=== PATIENT | male | born 1965 | race African-American/Black ===

== ENCOUNTER 2017-12-21 11:40 | Inpatient (IN) | payer OTHER ==
[2017-12-21 12:05] VITALS: BMI 31.9
--- NOTE | 2017-12-21 12:44 | HP ---
CIWA Score - CIWA Score Nausea/Vomitin Muscle Tremors: 3 Anxiety: 3 Agitation: 2 Paroxysmal Sweats: 1-Minimal Palms Moist Orientation: 0-Oriented Tacttile Disturbances: 1-Very Mild Itch/Numbness Auditory Disturbances: 1-Very Mild Visual Disturbances: 0-None Headache: 2-Mild CIWA-Ar Total Score: 16 Admission ROS BHS - HPI Chief Complaint: i need help to stop drinking alcohol and cocaine dependence,seeking detox,last treatment 2017 in [place] multiple admissions for detox but relapse nicotine dependence syncope alcohol related last 2 weeks ago history of a fall longest period of sobriety 2 and half years need help to stop drinking i Allergies/Adverse Reactions: Allergies Allergy/AdvReac Type Severity Reaction Status Date / Time No Known Allergies Allergy Verified 12/21/17 12:40 History of Present Illness: this 52 years old male with alcohol,cocaine dependence for detox as mentioned above Exam Limitations: No Limitations - Ebola screening Have you traveled outside of the country in the last 21 days: No Have you been sick,other than usual withdrawal symptoms: No - Review of Systems Constitutional: Chills, Loss of Appetite, Malaise, Night Sweats, Changes in sleep, Weakness EENT: reports: Nose Congestion Respiratory: reports: No Symptoms reported Cardiac: reports: No Symptoms Reported GI: reports: Nausea, Vomiting, Abdominal cramping : reports: No Symptoms Reported Musculoskeletal: reports: Muscle Pain Integumentary: reports: Dryness Neuro: reports: Headache, Tremors Endocrine: reports: No Symptoms Reported Hematology: reports: No Symptoms Reported Psychiatric: reports: No Sypmtoms Reported, Judgement Intact, Mood/Affect Appropiate, Orientated x3 Patient History - Patient Medical History Hx Anemia: No Hx Asthma: No Hx Chronic Obstructive Pulmonary Disease (COPD): No Hx Cancer: No Hx Cardiac Disorders: No Hx Congestive Heart Failure: No Hx Hypertension: Yes (Hx of HTN- On no medication) Hx Hypercholesterolemia: No Hx Pacemaker: No HX Cerebrovascular Accident: No Hx Seizures: No Hx Dementia: No Hx Diabetes: No Hx Gastrointestinal Disorders: No Hx Liver Disease: No Hx Genitourinary Disorders: No Hx Sexually Transmitted Disorders: No Hx Renal Disease (ESRD): No Hx Thyroid Disease: No Hx Human Immunodeficiency Virus (HIV): No (LAST 06/08 negtive) Hx Hepatitis C: No Hx Depression: No Hx Suicide Attempt: No Hx Bipolar Disorder: No Hx Schizophrenia: No Other Medical History: no suicidal,no homicidal - Patient Surgical History Past Surgical History: No Hx Neurologic Surgery: No Hx Cataract Extraction: No Hx Cardiac Surgery: No Hx Lung Surgery: No Hx Breast Surgery: No Hx Breast Biopsy: No Hx Abdominal Surgery: No Hx Appendectomy: No Hx Cholecystectomy: No Hx Genitourinary Surgery: No Hx Section: No Hx Orthopedic Surgery: No Anesthesia Reaction: No - PPD History Previous Implant?: Yes Implanted On Prior [facility] Admission?: Yes Date: 07/29/14 Results: negative PPD to be Administered?: Yes - Smoking Cessation Smoking history: Current every day smoker Have you smoked in the past 12 months: Yes Aproximately how many cigarettes per day: 5 Cigars Per Day: 0 Hx Chewing Tobacco Use: No Initiated information on smoking cessation: Yes 'Breaking Loose' booklet given: 12/21/17 - Substance & Tx. History Hx Alcohol Use: Yes Hx Substance Use: Yes Substance Use Type: Alcohol, Cocaine Hx Substance Use Treatment: Yes (2017 in [facility]) - Substances Abused Alcohol Route: Oral Frequency: Daily Amount used: 1 LITER OF VODKA, 2- 40 OUNCES OF BEER Age of first use: 15 Date of Last Use: 12/21/17 Cocaine Route: Inhalation Frequency: Daily Amount used: 1 -1/2 GRAMS Age of first use: 17 Date of Last Use: 12/20/17 Family Disease History - Family Disease History Family Disease History: Other: Brother (ETOH DEPENDENT), Sister (ETOH DEPENDENT) Admission Physical Exam S - Vital Signs Vital Signs: Vital Signs - 24 hr 12/21/17 12:02 Temperature 97.6 F Pulse Rate 82 Respiratory 19 Rate Blood Pressure 140/90 - Physical General Appearance: Yes: Moderate Distress, Tremorous, Irritable, Sweating, Anxious HEENTM: Yes: Normal ENT Inspection, JENARO, Pharynx Normal Respiratory: Yes: Lungs Clear, Normal Breath Sounds, No Respiratory Distress Neck: Yes: Within Normal Limits, Supple, Trachea in good position Breast: Yes: Within Normal Limits, Other Cardiology: Yes: Within Normal Limits, Regular Rate, S1, S2 Abdominal: Yes: Within Normal Limits, Normal Bowel Sounds, Non Tender, Soft Genitourinary: Yes: Within Normal Limits Musculoskeletal: Yes: Back pain, Muscle Pain Extremities: Yes: Within Normal Limits, Normal Range of Motion, Tremors Neurological: Yes: track walker II-XII NML intact, Alert, Motor Strength 5/5 Integumentary: Yes: Dry Lymphatic: Yes: Within Normal Limits - Diagnostic (1) Alcohol dependence with uncomplicated withdrawal Current Visit: Yes Status: Acute (2) Cocaine dependence Current Visit: No Status: Acute (3) Syncope Current Visit: No Status: Acute (4) Weight loss Current Visit: No Status: Acute (5) HTN (hypertension) Current Visit: No Status: Chronic (6) Nicotine dependence Current Visit: No Status: Chronic Cleared for Admission [facility] - Detox or Rehab [facility] Level of Care: Medically Managed Detox Regimen/Protocol: Librium [facility] Breath Alcohol Content Breath Alcohol Content: 0 Urine Drug Screen - Results Drug Screen Negative: No Urine Drug Screen Results: ERICK-Cocaine, BZO-Benzodiazepines
[2017-12-21] MEDS ORDERED: chlordiazePOXIDE HCL 25 MG CAPSULE PO PRN (12:54)
[2017-12-21] MEDS ORDERED: IBUPROFEN 400 MG TABLET (FP) PO PRN (12:54)
[2017-12-21] MEDS ORDERED: ACETAMINOPHEN 325 MG TABLET (FP) PO PRN (12:54)
[2017-12-21] MEDS ORDERED: hydrOXYzine PAMOATE 25 MG CAPSULE (FP) PO PRN (12:54)
[2017-12-21] MEDS ORDERED: P-EPHED 60MG/TRIPROLIDI 2.5MG TABLET PO PRN (12:54)
[2017-12-21] MEDS ORDERED: MAG HYDROX/AL HYDROX/SIMETH 30 ML UNIT-DOSE CUP PO PRN (12:54)
[2017-12-21] MEDS ORDERED: LOPERAMIDE HCL 2 MG CAPSULE PO PRN (12:54)
[2017-12-21] MEDS ORDERED: MENTHOL/PHENOL 1 EACH UD MM PRN (12:54)
[2017-12-21] MEDS ORDERED: MAGNESIUM HYDROX 2400MG/30ML ORAL SUSPENSION 30 ML CUP PO PRN (12:54)
[2017-12-21] MEDS ORDERED: guaiFENesin/D-METHORPHAN HB 10 ML UNIT-DOSE CUPS PO PRN (12:54)
[2017-12-21] MEDS ORDERED: MAGNESIUM CITRATE 300 ML BOTTLE PO PRN (12:54)
[2017-12-21] MEDS: chlordiazePOXIDE HCL 25 MG CAPSULE PO SCH ×2 (16:57→22:43)
[2017-12-21 17:39] LABS: URINE APPEARANCE TURBID; URINE BILIRUBIN NEGATIVE (<2.0 mg/dL); URINE COLOR AMBER; URINE GLUCOSE (UA) NEGATIVE (NEGATIVE); URINE KETONE NEGATIVE (NEGATIVE); URINE LEUK ESTERASE NEGATIVE (NEGATIVE); URINE NITRITE NEGATIVE (NEGATIVE); URINE PROTEIN NEGATIVE (NEGATIVE); URINE UROBILINOGEN NEGATIVE mg/dL (0.2-1.0)
[2017-12-21] MEDS: THIAMINE HCL 100 MG TABLET (FP) PO SCH (22:42)
[2017-12-22] MEDS: chlordiazePOXIDE HCL 25 MG CAPSULE PO SCH ×4 (05:30→22:01)
--- NOTE | 2017-12-22 06:09 | EKG ---
Test Reason : Blood Pressure : / mmHG Vent. Rate : 069 BPM Atrial Rate : 069 BPM P-R Int : 132 ms QRS Dur : 084 ms QT Int : 396 ms P-R-T Axes : 059 026 -05 degrees QTc Int : 424 ms NORMAL SINUS RHYTHM NORMAL ECG NO PREVIOUS ECGS AVAILABLE Confirmed by TOOTIE BEJARANO MD ([id number]) on 12/22/2017 6:09:07 AM Referred By: SYDNIE CHERRY Confirmed By:TOOTIE BEJARANO MD
[2017-12-22] MEDS: PRENATAL VITAMINS W/ FOLIC ACID TABLET (FP) PO SCH (10:07)
[2017-12-22 10:21] LABS: HEMATOCRIT 41.8 % (35.4-49); HEMOGLOBIN 13.5 GM/dL (11.7-16.9); MCH 30.3 pg (25.7-33.7); MCHC 32.4 g/dl (32.0-35.9); MEAN CELL VOLUME 93.8 fl (80-96); MEAN PLT VOLUME 8.6 fl (7.5-11.1); PLATELET COUNT 187 K/MM3 (134-434); RBC 4.46 M/mm3 (4.00-5.60); WHITE BLOOD COUNT 6.2 K/mm3 (4.0-10.0)
[2017-12-22 10:40] LABS: ALBUMIN 3.2 g/dl (3.4-5.0); ALK PHOS 67 U/L (45-117); ANION GAP 7 MMOL/L (8-16); BILIRUBIN,TOTAL 0.3 mg/dL (0.2-1); BLOOD UREA NITROGEN 13 mg/dL (7-18); CALCIUM 8.8 mg/dL (8.5-10.1); CHLORIDE 103 mmol/L (98-107); CO2 27 mmol/L (21-32); GLUCOSE,RANDOM 121 mg/dL (74-106); POTASSIUM 3.9 mmol/L (3.5-5.1); SGOT/AST 23 U/L (15-37); SGPT/ALT 40 U/L (13-61); SODIUM 137 mmol/L (136-145); TOT PROT 6.8 g/dl (6.4-8.2)
--- NOTE | 2017-12-22 11:10 | PN ---
S CIWA - CIWA Score Nausea/Vomitin Muscle Tremors: 4-Moderate,w/Arms Extend Anxiety: 4-Mod. Anxious/Guarded Agitation: 4-Moderately Restless Paroxysmal Sweats: 3 Orientation: 0-Oriented Tacttile Disturbances: 0-None Auditory Disturbances: 0-None Visual Disturbances: 0-None Headache: 1-Very Mild CIWA-Ar Total Score: 19 BHS Progress Note (SOAP) Subjective: Interrupted sleep, sweating Objective: 12/22/17 10:56 Last Vital Signs Temp Pulse Resp BP Pulse Ox 97.3 F L 74 18 110/72 12/22/17 09:35 12/22/17 09:35 12/22/17 09:35 12/22/17 09:35 Laboratory Tests 12/21/17 12/22/17 12/22/17 13:25 07:00 07:00 WBC 6.2 RBC 4.46 Hgb 13.5 Hct 41.8 MCV 93.8 MCH 30.3 MCHC 32.4 RDW 15.0 Plt Count 187 MPV 8.6 Sodium 137 Potassium 3.9 Chloride 103 Carbon Dioxide 27 Anion Gap 7 L BUN 13 Creatinine 1.0 Creat Clearance w eGFR > 60 Random Glucose 121 H Calcium 8.8 Total Bilirubin 0.3 AST 23 ALT 40 Alkaline Phosphatase 67 Total Protein 6.8 Albumin 3.2 L Urine Color [place] Urine Appearance Turbid Urine pH 5.0 Ur Specific [place] 1.027 Urine Protein Negative Urine Glucose (UA) Negative Urine Ketones Negative Urine Blood Negative Urine Nitrite Negative Urine Bilirubin Negative Urine Urobilinogen Negative Ur Leukocyte Esterase Negative Labs reviewed Assessment: 12/22/17 11:00 Withdrawal sx Plan: Continue detox Encouraged PO water intake
[2017-12-22] MEDS: THIAMINE HCL 100 MG TABLET (FP) PO SCH (22:01)
[2017-12-22] MEDS: MELATONIN 5 MG TABLETS PO PRN (23:23)
[2017-12-23] MEDS: chlordiazePOXIDE HCL 25 MG CAPSULE PO SCH ×2 (05:21→12:34)
--- NOTE | 2017-12-23 11:23 | PN ---
S CIWA - CIWA Score Nausea/Vomitin Muscle Tremors: 3 Anxiety: 4-Mod. Anxious/Guarded Agitation: 4-Moderately Restless Paroxysmal Sweats: 3 Orientation: 0-Oriented Tacttile Disturbances: 0-None Auditory Disturbances: 0-None Visual Disturbances: 0-None Headache: 0-None Present CIWA-Ar Total Score: 16 BHS Progress Note (SOAP) Subjective: Anxious, headache, agitation, interrupted sleep Objective: 12/23/17 11:22 Last Vital Signs Temp Pulse Resp BP Pulse Ox 97 F L 80 18 136/86 12/23/17 09:21 12/23/17 09:21 12/23/17 09:21 12/23/17 09:21 Laboratory Tests 12/21/17 12/22/17 12/22/17 13:25 07:00 07:00 WBC 6.2 RBC 4.46 Hgb 13.5 Hct 41.8 MCV 93.8 MCH 30.3 MCHC 32.4 RDW 15.0 Plt Count 187 MPV 8.6 Sodium Potassium Chloride Carbon Dioxide Anion Gap BUN Creatinine Creat Clearance w eGFR Random Glucose Calcium Total Bilirubin AST ALT Alkaline Phosphatase Total Protein Albumin Urine Color Heather Urine Appearance Turbid Urine pH 5.0 Ur Specific [place] 1.027 Urine Protein Negative Urine Glucose (UA) Negative Urine Ketones Negative Urine Blood Negative Urine Nitrite Negative Urine Bilirubin Negative Urine Urobilinogen Negative Ur Leukocyte Esterase Negative RPR Titer HIV 1&2 Antibody Screen Negative HIV P24 Antigen Negative 12/22/17 12/22/17 07:00 07:00 WBC RBC Hgb Hct MCV MCH MCHC RDW Plt Count MPV Sodium 137 Potassium 3.9 Chloride 103 Carbon Dioxide 27 Anion Gap 7 L BUN 13 Creatinine 1.0 Creat Clearance w eGFR > 60 Random Glucose 121 H Calcium 8.8 Total Bilirubin 0.3 AST 23 ALT 40 Alkaline Phosphatase 67 Total Protein 6.8 Albumin 3.2 L Urine Color Urine Appearance Urine pH Ur Specific [place] Urine Protein Urine Glucose (UA) Urine Ketones Urine Blood Urine Nitrite Urine Bilirubin Urine Urobilinogen Ur Leukocyte Esterase RPR Titer Nonreactive HIV 1&2 Antibody Screen HIV P24 Antigen Labs reviewed Assessment: 12/23/17 11:22 Withdrawal sx Plan: Continue detox
[2017-12-23] MEDS: PRENATAL VITAMINS W/ FOLIC ACID TABLET (FP) PO SCH (12:33)
[2017-12-23] MEDS: chlordiazePOXIDE 5 MG CAPSULE PO SCH ×2 (18:09→22:14)
[2017-12-23] MEDS: THIAMINE HCL 100 MG TABLET (FP) PO SCH (22:14)
[2017-12-23] MEDS: MELATONIN 5 MG TABLETS PO PRN (22:15)
[2017-12-24] MEDS: chlordiazePOXIDE 5 MG CAPSULE PO SCH ×2 (06:29→10:05)
[2017-12-24 09:02] VITALS: BP 124/89; PULSE 82; TEMP 96.7
[2017-12-24] MEDS: PRENATAL VITAMINS W/ FOLIC ACID TABLET (FP) PO SCH (10:04)
--- NOTE | 2017-12-24 10:29 | PN ---
BHS Progress Note (SOAP) Subjective: Angry, agitated, anxious, interrupted sleep. Patient with multiple complaints stating he has been demanding a lot of services and not getting any result such as requesting clothing. Objective: 12/24/17 10:26 Last Vital Signs Temp Pulse Resp BP Pulse Ox 96.7 F L 82 16 124/89 12/24/17 09:02 12/24/17 09:02 12/24/17 09:02 12/24/17 09:02 Laboratory Tests 12/21/17 12/22/17 12/22/17 13:25 07:00 07:00 WBC 6.2 RBC 4.46 Hgb 13.5 Hct 41.8 MCV 93.8 MCH 30.3 MCHC 32.4 RDW 15.0 Plt Count 187 MPV 8.6 Sodium Potassium Chloride Carbon Dioxide Anion Gap BUN Creatinine Creat Clearance w eGFR Random Glucose Calcium Total Bilirubin AST ALT Alkaline Phosphatase Total Protein Albumin Urine Color Heather Urine Appearance Turbid Urine pH 5.0 Ur Specific [place] 1.027 Urine Protein Negative Urine Glucose (UA) Negative Urine Ketones Negative Urine Blood Negative Urine Nitrite Negative Urine Bilirubin Negative Urine Urobilinogen Negative Ur Leukocyte Esterase Negative RPR Titer HIV 1&2 Antibody Screen Negative HIV P24 Antigen Negative 12/22/17 12/22/17 07:00 07:00 WBC RBC Hgb Hct MCV MCH MCHC RDW Plt Count MPV Sodium 137 Potassium 3.9 Chloride 103 Carbon Dioxide 27 Anion Gap 7 L BUN 13 Creatinine 1.0 Creat Clearance w eGFR > 60 Random Glucose 121 H Calcium 8.8 Total Bilirubin 0.3 AST 23 ALT 40 Alkaline Phosphatase 67 Total Protein 6.8 Albumin 3.2 L Urine Color Urine Appearance Urine pH Ur Specific [place] Urine Protein Urine Glucose (UA) Urine Ketones Urine Blood Urine Nitrite Urine Bilirubin Urine Urobilinogen Ur Leukocyte Esterase RPR Titer Nonreactive HIV 1&2 Antibody Screen HIV P24 Antigen Labs reviewed Assessment: 12/24/17 10:27 Withdrawal sxs Plan: Continue detox Encouraged PO water intake
--- NOTE | 2017-12-24 16:54 | PN ---
[facility] Progress Note Note: Notified by RN patient requested to leave right now. Patient agitated and refused to wait to speak to provider. Patient stated to staff " No one can make me stay here. I want to leave now! Give me my papers." No statements of SI/HI reported by patient. Patient encouraged to complete detox but refused. Patient encouraged to follow up with group meetings to prevent relapse.
--- NOTE | 2017-12-24 16:54 | DS ---
[facility] Detox Discharge Summary Admission Date: 12/21/17 Discharge Date: 12/24/17 - History Present History: Alcohol Dependence - Physical Exam Results Vital Signs: Vital Signs Temperature 96.7 F L 12/24/17 09:02 Pulse Rate 82 12/24/17 09:02 Respiratory Rate 16 12/24/17 09:02 Blood Pressure 124/89 12/24/17 09:02 O2 Sat by Pulse Oximetry (%) - Medication Discharge Medications: Ambulatory Orders NK [No Known Home Medication] 12/21/17 - AMA Did Patient Leave Against Medical Advice: Yes
[2017-12-24] MEDS ORDERED: chlordiazePOXIDE HCL 10 MG CAPSULE PO SCH (17:00)
== END 2017-12-24 16:45 | disposition left against medical advice (07) | DRG 770 ==
LOC: YASAS 11:40 → Y3N 12:50
PROC: HZ2ZZZZ Detoxification Services for Substance Abuse Treatment (ICD-10-PCS; principal; 2017-12-21)
DX: F10.230 Alcohol dependence with withdrawal, uncomplicated (principal); F14.20 Cocaine dependence, uncomplicated; F17.210 Nicotine dependence, cigarettes, uncomplicated; I10 Essential (primary) hypertension; Z87.898 Personal history of other specified conditions; Z59.0 Homelessness
CPT/HCPCS: 36415; 80053; 81003; 85027; 86593; 87389; 93005; 93010

== ENCOUNTER 2018-04-12 08:24 | Inpatient (IN) | payer OTHER ==
[2018-04-12 09:26] VITALS: BMI 34.6
--- NOTE | 2018-04-12 09:32 | HP ---
CIWA Score Nausea/Vomitin Muscle Tremors: 2 Anxiety: 2 Agitation: 2 Paroxysmal Sweats: 3 Orientation: 0-Oriented Tacttile Disturbances: 0-None Auditory Disturbances: 0-None Visual Disturbances: 0-None Headache: 3-Moderate CIWA-Ar Total Score: 14 - Admission Criteria [facility] Guidelines: Admission for Medically Managed Detox: Requires at least one of the followin. CIWA greater than 12 2. Seizures within the past 24 hours 3. Delirium tremens within the past 24 hours 4. Hallucinations within the past 24 hours 5. Acute intervention needed for co occurring medical disorder 6. Acute intervention needed for co occurring psychiatric disorder 7. Severe withdrawal that cannot be handled at a lower level of care (continued vomiting, continued diarrhea, abnormal vital signs) requiring intravenous medication and/or fluids 8. Patient presents the following: CIWA greater than 12 Admission Criteria Met: Admission criteria met Admission ROS [facility] Chief Complaint: HERE FOR alcohol and cocaine detox, says he went to [facility] but did not get treatment as the van to come here picked him up within 10 mins 52 yo with no med problems takes no meds, last here 3 months ago for the same. Says he was without using for about 6 weeks and then relapse. Says does not attend AA or group meetings regularly. Alcohol- 3-4 pints/day of flacca, no seizures or DT's, last drink 6 hours ago Cocaine- 1 or less per day depending on money- sniff DUR- morphine sulfate in Feb 28 2018, none in Mar Utox- cocaine, benzo (does not know how this is pos- denies all benzo) Allergies/Adverse Reactions: Allergies Allergy/AdvReac Type Severity Reaction Status Date / Time No Known Allergies Allergy Verified 04/12/18 09:03 - Ebola screening Have you been sick,other than usual withdrawal symptoms: No Patient History - Patient Medical History Hx Anemia: No Hx Asthma: No Hx Chronic Obstructive Pulmonary Disease (COPD): No Hx Cancer: No Hx Cardiac Disorders: No Hx Congestive Heart Failure: No Hx Hypertension: Yes (Hx of HTN- On no medication) Hx Hypercholesterolemia: No Hx Pacemaker: No HX Cerebrovascular Accident: No Hx Seizures: No Hx Dementia: No Hx Diabetes: No Hx Gastrointestinal Disorders: No Hx Liver Disease: No Hx Genitourinary Disorders: No Hx Sexually Transmitted Disorders: No Hx Renal Disease (ESRD): No Hx Thyroid Disease: No Hx Human Immunodeficiency Virus (HIV): No (LAST 06/08 negtive) Hx Hepatitis C: No Hx Depression: No Hx Suicide Attempt: No Hx Bipolar Disorder: No Hx Schizophrenia: No - Patient Surgical History Past Surgical History: Yes Hx Neurologic Surgery: No Hx Cataract Extraction: No Hx Cardiac Surgery: No Hx Lung Surgery: No Hx Breast Surgery: No Hx Breast Biopsy: No Hx Abdominal Surgery: No Hx Appendectomy: No Hx Cholecystectomy: No Hx Genitourinary Surgery: No Hx Section: No Hx Orthopedic Surgery: Yes (RIGHT FOOT BUNION SURGERY 2014) Anesthesia Reaction: No - PPD History Previous Implant?: Yes Documented Results: Negative w/proof Implanted On Prior [facility] Admission?: Yes Date: 12/23/17 Results: NEGATIVE PPD to be Administered?: No - Smoking Cessation Smoking history: Current every day smoker Have you smoked in the past 12 months: Yes Aproximately how many cigarettes per day: 10 Cigars Per Day: 0 Hx Chewing Tobacco Use: No Initiated information on smoking cessation: Yes 'Breaking Loose' booklet given: 04/12/18 - Substance & Tx. History Hx Alcohol Use: Yes Hx Substance Use: Yes Substance Use Type: Alcohol, Cocaine Hx Substance Use Treatment: Yes (several times) - Substances Abused Alcohol Route: Oral Frequency: Daily Amount used: 3 PINTS OF VODKA Age of first use: 15 Date of Last Use: 04/12/18 Cocaine Route: Inhalation Frequency: 3-6 times per week Amount used: 1 GRAM Age of first use: 17 Date of Last Use: 04/11/18 Family Disease History - Family Disease History Family Disease History: Other: Brother (ETOH DEPENDENT), Sister (ETOH DEPENDENT) Admission Physical Exam S - Vital Signs Vital Signs: Vital Signs - 24 hr 04/12/18 08:55 Temperature 96.8 F L Pulse Rate 111 H Respiratory 18 Rate Blood Pressure 113/70 - Physical HEENTM: Yes: Other (blood shot eyes) Respiratory: Yes: Within Normal Limits, Lungs Clear Neck: Yes: Within Normal Limits, Supple Cardiology: Yes: Within Normal Limits, Regular Rhythm, Regular Rate, S1, S2 Abdominal: Yes: Within Normal Limits, Protuberent Back: Yes: Within Normal Limits Musculoskeletal: Yes: Within Normal Limits Extremities: Yes: Within Normal Limits, Other (fungal onychomycosis) Neurological: Yes: Within Normal Limits, emergency telecommunications dispatcher II-XII NML intact, Fully Oriented, Motor Strength 5/5, Normal Mood/Affect Integumentary: Yes: Within Normal Limits, Normal Color, Dry Lymphatic: Yes: Within Normal Limits - Diagnostic (1) Alcohol dependence with uncomplicated withdrawal Current Visit: No Status: Acute (2) Cocaine dependence Current Visit: No Status: Chronic (3) Nicotine dependence Current Visit: No Status: Chronic BHS Breath Alcohol Content Breath Alcohol Content: 0.110 Urine Drug Screen - Results Drug Screen Negative: No Urine Drug Screen Results: ERICK-Cocaine, BZO-Benzodiazepines
[2018-04-12] MEDS ORDERED: hydrOXYzine PAMOATE 25 MG CAPSULE (FP) PO PRN (09:37)
[2018-04-12] MEDS ORDERED: P-EPHED 60MG/TRIPROLIDI 2.5MG TABLET PO PRN (09:37)
[2018-04-12] MEDS ORDERED: ACETAMINOPHEN 325 MG TABLET (FP) PO PRN (09:37)
[2018-04-12] MEDS ORDERED: MAG HYDROX/AL HYDROX/SIMETH 30 ML UNIT-DOSE CUP PO PRN (09:37)
[2018-04-12] MEDS ORDERED: MAGNESIUM CITRATE 300 ML BOTTLE PO PRN (09:37)
[2018-04-12] MEDS ORDERED: MAGNESIUM HYDROX 2400MG/30ML ORAL SUSPENSION 30 ML CUP PO PRN (09:37)
[2018-04-12] MEDS ORDERED: MENTHOL/PHENOL 1 EACH UD MM PRN (09:37)
[2018-04-12] MEDS ORDERED: LOPERAMIDE HCL 2 MG CAPSULE PO PRN (09:37)
[2018-04-12] MEDS ORDERED: chlordiazePOXIDE HCL 25 MG CAPSULE PO PRN (09:38)
[2018-04-12] MEDS ORDERED: cloNIDine HCL 0.1 MG TABLET PO PRN (09:39)
[2018-04-12] MEDS: chlordiazePOXIDE HCL 25 MG CAPSULE PO SCH ×3 (10:43→22:26)
[2018-04-12] MEDS: PRENATAL VITAMINS W/ FOLIC ACID TABLET (FP) PO SCH (10:43)
[2018-04-12] MEDS: IBUPROFEN 400 MG TABLET (FP) PO PRN (17:40)
[2018-04-12] MEDS: THIAMINE HCL 100 MG TABLET (FP) PO SCH (22:26)
[2018-04-12 23:01] LABS: URINE APPEARANCE TURBID; URINE BILIRUBIN NEGATIVE (<2.0 mg/dL); URINE COLOR YELLOW; URINE GLUCOSE (UA) NEGATIVE (NEGATIVE); URINE KETONE TRACE (NEGATIVE); URINE LEUK ESTERASE NEGATIVE (NEGATIVE); URINE NITRITE NEGATIVE (NEGATIVE); URINE PROTEIN 1+ (NEGATIVE); URINE UROBILINOGEN NEGATIVE mg/dL (0.2-1.0)
[2018-04-12 23:24] LABS: URINE BACTERIA FEW /hpf (NONE SEEN); URINE MUCUS RARE
[2018-04-13] MEDS: chlordiazePOXIDE HCL 25 MG CAPSULE PO SCH (06:55)
[2018-04-13] MEDS ORDERED: chlordiazePOXIDE 5 MG CAPSULE PO PRN (10:03)
[2018-04-13 10:04] LABS: HEMATOCRIT 36.9 % (35.4-49); HEMOGLOBIN 12.7 GM/dL (11.7-16.9); MCHC 34.4 g/dl (32.0-35.9); MEAN CELL VOLUME 90.2 fl (80-96); MEAN PLT VOLUME 8.6 fl (7.5-11.1); PLATELET COUNT 203 K/MM3 (134-434); RBC 4.09 M/mm3 (4.00-5.60); RDW 14.8 % (11.9-15.9); WHITE BLOOD COUNT 5.7 K/mm3 (4.0-10.0)
[2018-04-13 10:13] LABS: ALBUMIN 3.2 g/dl (3.4-5.0); ALK PHOS 95 U/L (45-117); ANION GAP 6 MMOL/L (8-16); BILIRUBIN,TOTAL 0.9 mg/dL (0.2-1); BLOOD UREA NITROGEN 18 mg/dL (7-18); CALCIUM 8.1 mg/dL (8.5-10.1); CHLORIDE 105 mmol/L (98-107); CO2 29 mmol/L (21-32); GLUCOSE,RANDOM 115 mg/dL (74-106); POTASSIUM 3.9 mmol/L (3.5-5.1); SGOT/AST 29 U/L (15-37); SGPT/ALT 44 U/L (13-61); SODIUM 140 mmol/L (136-145); TOT PROT 6.8 g/dl (6.4-8.2)
[2018-04-13] MEDS: chlordiazePOXIDE 5 MG CAPSULE PO SCH ×3 (10:19→22:09)
[2018-04-13] MEDS: PRENATAL VITAMINS W/ FOLIC ACID TABLET (FP) PO SCH (10:19)
[2018-04-13] MEDS ORDERED: chlordiazePOXIDE HCL 25 MG CAPSULE PO SCH (11:00)
--- NOTE | 2018-04-13 14:56 | PN ---
[facility] CIWA - CIWA Score Nausea/Vomitin-No Nausea/No Vomiting Muscle Tremors: None Anxiety: 0-No Anxiety, at Ease Agitation: 0-Normal Activity Paroxysmal Sweats: 3 Orientation: 0-Oriented Tacttile Disturbances: 2-Mild Itch/Numbness/Burn Auditory Disturbances: 1-Very Mild Visual Disturbances: 3-Moderate Sensitivity Headache: 3-Moderate CIWA-Ar Total Score: 12 BHS Progress Note (SOAP) Subjective: Sweating, Body Aches, H/A, Interrupted Sleep, Diarrhea. Patient Reports that he fell and injured his Lower Left Leg approx. 10 days ago. Patient Notes that he was seen at [facility], but that no X-Ray was done and that he did not receive treatment for Injury while there at that time. Patient does note that pain in Leg has gradually been improving with each day since injury occurred. Objective: PATIENT A & O X 3, OBSERVED AMBULATING ON UNIT. IN NO ACUTE DISTRESS. NO SWELLING OR ERYTHEMA NOTED IN LEFT LOWER LEG OR KNEE. 04/13/18 14:59 Vital Signs Temperature 97.5 F L 04/13/18 13:25 Pulse Rate 88 04/13/18 13:25 Respiratory Rate 18 04/13/18 13:25 Blood Pressure 135/75 04/13/18 13:25 O2 Sat by Pulse Oximetry (%) Laboratory Tests 04/12/18 04/13/18 04/13/18 13:47 07:55 07:55 WBC 5.7 RBC 4.09 Hgb 12.7 Hct 36.9 MCV 90.2 MCH 31.0 MCHC 34.4 RDW 14.8 Plt Count 203 MPV 8.6 Sodium 140 Potassium 3.9 Chloride 105 Carbon Dioxide 29 Anion Gap 6 L BUN 18 Creatinine 1.0 Creat Clearance w eGFR > 60 Random Glucose 115 H Calcium 8.1 L Total Bilirubin 0.9 AST 29 ALT 44 Alkaline Phosphatase 95 Total Protein 6.8 Albumin 3.2 L Urine Color Yellow Urine Appearance Turbid Urine pH 5.0 Ur Specific [place] 1.029 Urine Protein 1+ H Urine Glucose (UA) Negative Urine Ketones Trace H Urine Blood Negative Urine Nitrite Negative Urine Bilirubin Negative Urine Urobilinogen Negative Ur Leukocyte Esterase Negative Urine WBC (Auto) None Urine RBC (Auto) None Urine Bacteria Few Urine Mucus Rare RPR Titer 04/13/18 07:55 WBC RBC Hgb Hct MCV MCH MCHC RDW Plt Count MPV Sodium Potassium Chloride Carbon Dioxide Anion Gap BUN Creatinine Creat Clearance w eGFR Random Glucose Calcium Total Bilirubin AST ALT Alkaline Phosphatase Total Protein Albumin Urine Color Urine Appearance Urine pH Ur Specific [place] Urine Protein Urine Glucose (UA) Urine Ketones Urine Blood Urine Nitrite Urine Bilirubin Urine Urobilinogen Ur Leukocyte Esterase Urine WBC (Auto) Urine RBC (Auto) Urine Bacteria Urine Mucus RPR Titer Nonreactive LABS NOTED. Assessment: 04/13/18 15:00 WITHDRAWAL SYMPTOMS. Plan: CONTINUE DETOX. INCREASE DAILY PO FLUID INTAKE. X-RAY OF LEFT LOWER LEG ORDERED FOR TOMORROW AM.
[2018-04-13] MEDS: IBUPROFEN 400 MG TABLET (FP) PO PRN (17:56)
[2018-04-13] MEDS: THIAMINE HCL 100 MG TABLET (FP) PO SCH (22:09)
[2018-04-13] MEDS: MELATONIN 5 MG TABLETS PO PRN (22:09)
[2018-04-14] MEDS: chlordiazePOXIDE 5 MG CAPSULE PO SCH (06:40)
[2018-04-14] MEDS: PRENATAL VITAMINS W/ FOLIC ACID TABLET (FP) PO SCH (10:17)
[2018-04-14] MEDS: chlordiazePOXIDE HCL 10 MG CAPSULE PO SCH ×3 (10:17→22:01)
[2018-04-14] MEDS ORDERED: chlordiazePOXIDE 5 MG CAPSULE PO SCH (11:00)
[2018-04-14] MEDS: IBUPROFEN 400 MG TABLET (FP) PO PRN ×2 (12:39→21:46)
--- NOTE | 2018-04-14 14:46 | PN ---
[facility] CIWA - CIWA Score Nausea/Vomitin-No Nausea/No Vomiting Muscle Tremors: None Anxiety: 3 Agitation: 0-Normal Activity Paroxysmal Sweats: 3 Orientation: 0-Oriented Tacttile Disturbances: 2-Mild Itch/Numbness/Burn Auditory Disturbances: 1-Very Mild Visual Disturbances: 2-Mild Sensitivity Headache: 0-None Present CIWA-Ar Total Score: 11 S Progress Note (SOAP) Subjective: Interrupted Sleep, Body Aches, Sweating. Objective: PATIENT A & O X 3, OBSERVED AMBULATING ON UNIT. IN NO ACUTE DISTRESS. 04/14/18 14:44 Vital Signs Temperature 96.6 F L 04/14/18 14:24 Pulse Rate 81 04/14/18 14:24 Respiratory Rate 18 04/14/18 14:24 Blood Pressure 137/89 04/14/18 14:24 O2 Sat by Pulse Oximetry (%) Laboratory Tests 04/12/18 04/13/18 04/13/18 13:47 07:55 07:55 WBC 5.7 RBC 4.09 Hgb 12.7 Hct 36.9 MCV 90.2 MCH 31.0 MCHC 34.4 RDW 14.8 Plt Count 203 MPV 8.6 Sodium 140 Potassium 3.9 Chloride 105 Carbon Dioxide 29 Anion Gap 6 L BUN 18 Creatinine 1.0 Creat Clearance w eGFR > 60 Random Glucose 115 H Calcium 8.1 L Total Bilirubin 0.9 AST 29 ALT 44 Alkaline Phosphatase 95 Total Protein 6.8 Albumin 3.2 L Urine Color Yellow Urine Appearance Turbid Urine pH 5.0 Ur Specific [place] 1.029 Urine Protein 1+ H Urine Glucose (UA) Negative Urine Ketones Trace H Urine Blood Negative Urine Nitrite Negative Urine Bilirubin Negative Urine Urobilinogen Negative Ur Leukocyte Esterase Negative Urine WBC (Auto) None Urine RBC (Auto) None Urine Bacteria Few Urine Mucus Rare RPR Titer 04/13/18 07:55 WBC RBC Hgb Hct MCV MCH MCHC RDW Plt Count MPV Sodium Potassium Chloride Carbon Dioxide Anion Gap BUN Creatinine Creat Clearance w eGFR Random Glucose Calcium Total Bilirubin AST ALT Alkaline Phosphatase Total Protein Albumin Urine Color Urine Appearance Urine pH Ur Specific [place] Urine Protein Urine Glucose (UA) Urine Ketones Urine Blood Urine Nitrite Urine Bilirubin Urine Urobilinogen Ur Leukocyte Esterase Urine WBC (Auto) Urine RBC (Auto) Urine Bacteria Urine Mucus RPR Titer Nonreactive LABS NOTED. RESULTS OF X-RAY OF LEFT TIBIA / FIBULA PENDING. 04/14/18 14:45 Assessment: 04/14/18 14:44 WITHDRAWAL SYMPTOMS. Plan: CONTINUE DETOX. INCREASE DAILY PO FLUID INTAKE.
[2018-04-14] MEDS: THIAMINE HCL 100 MG TABLET (FP) PO SCH (22:01)
[2018-04-15] MEDS: chlordiazePOXIDE HCL 10 MG CAPSULE PO SCH (06:46)
[2018-04-15] MEDS: IBUPROFEN 400 MG TABLET (FP) PO PRN ×2 (08:46→22:10)
[2018-04-15] MEDS: PRENATAL VITAMINS W/ FOLIC ACID TABLET (FP) PO SCH (10:43)
[2018-04-15] MEDS: chlordiazePOXIDE 5 MG CAPSULE PO SCH ×3 (10:44→22:10)
[2018-04-15] MEDS: guaiFENesin/D-METHORPHAN HB 10 ML UNIT-DOSE CUPS PO PRN ×2 (10:46→23:03)
[2018-04-15] MEDS ORDERED: chlordiazePOXIDE HCL 10 MG CAPSULE PO SCH (11:00)
--- NOTE | 2018-04-15 11:06 | PN ---
[facility] Progress Note (SOAP) Subjective: Body Aches. Objective: PATIENT A & O X 3, OBSERVED AMBULATING ON UNIT. IN NO ACUTE DISTRESS. 04/15/18 11:01 Vital Signs Temperature 96.1 F L 04/15/18 09:18 Pulse Rate 84 04/15/18 09:18 Respiratory Rate 18 04/15/18 09:18 Blood Pressure 132/86 04/15/18 09:18 O2 Sat by Pulse Oximetry (%) Laboratory Tests 04/12/18 04/13/18 04/13/18 13:47 07:55 07:55 WBC 5.7 RBC 4.09 Hgb 12.7 Hct 36.9 MCV 90.2 MCH 31.0 MCHC 34.4 RDW 14.8 Plt Count 203 MPV 8.6 Sodium 140 Potassium 3.9 Chloride 105 Carbon Dioxide 29 Anion Gap 6 L BUN 18 Creatinine 1.0 Creat Clearance w eGFR > 60 Random Glucose 115 H Calcium 8.1 L Total Bilirubin 0.9 AST 29 ALT 44 Alkaline Phosphatase 95 Total Protein 6.8 Albumin 3.2 L Urine Color Yellow Urine Appearance Turbid Urine pH 5.0 Ur Specific [place] 1.029 Urine Protein 1+ H Urine Glucose (UA) Negative Urine Ketones Trace H Urine Blood Negative Urine Nitrite Negative Urine Bilirubin Negative Urine Urobilinogen Negative Ur Leukocyte Esterase Negative Urine WBC (Auto) None Urine RBC (Auto) None Urine Bacteria Few Urine Mucus Rare RPR Titer 04/13/18 07:55 WBC RBC Hgb Hct MCV MCH MCHC RDW Plt Count MPV Sodium Potassium Chloride Carbon Dioxide Anion Gap BUN Creatinine Creat Clearance w eGFR Random Glucose Calcium Total Bilirubin AST ALT Alkaline Phosphatase Total Protein Albumin Urine Color Urine Appearance Urine pH Ur Specific [place] Urine Protein Urine Glucose (UA) Urine Ketones Urine Blood Urine Nitrite Urine Bilirubin Urine Urobilinogen Ur Leukocyte Esterase Urine WBC (Auto) Urine RBC (Auto) Urine Bacteria Urine Mucus RPR Titer Nonreactive LABS NOTED. Assessment: 04/15/18 11:01 WITHDRAWAL SYMPTOMS. Plan: CONTINUE DETOX. RESULTS OF X-RAY OF TIBIA / FIBULA OF LEFT LEG DISCUSSED WITH PATIENT. COPY OF RESULTS REPORT GIVEN TO PATIENT TO TAKE WITH AT TIME OF DISCHARGE FROM DETOX UNIT. PATIENT ADVISED TO FOLLOW-UP WITH DRILL PRESS OPERATOR FOR METAL DR. Buffy QUINN ([place], [place]) SOON POSSIBLE AFTER DISCHARGE FROM DETOX UNIT FOR FURTHER EVALUATION OF INJURY. PATIENT ADVISED TO REST AND ELEVATE LEFT LEG IN BED MUCH POSSIBLE FOR THE INTERIM. PATIENT VERBALIZED UNDERSTANDING OF RECOMMENDATIONS. PATIENT SCHEDULED FOR D/C TOMORROW .
[2018-04-15] MEDS: THIAMINE HCL 100 MG TABLET (FP) PO SCH (22:09)
[2018-04-15] MEDS: MELATONIN 5 MG TABLETS PO PRN (23:03)
[2018-04-16] MEDS: chlordiazePOXIDE 5 MG CAPSULE PO SCH (05:58)
[2018-04-16 09:10] VITALS: BP 116/67; PULSE 85; TEMP 97.7
--- NOTE | 2018-04-16 17:48 | DS ---
[facility] Detox Discharge Summary Admission Date: 04/12/18 Discharge Date: 04/16/18 - History Present History: Alcohol Dependence, Cocaine Dependence Additional Comments: PATIENT INITIALLY CONSIDERED REHAB REFERRAL, BUT LATER DECLINED, NOTING THAT HE INSTEAD PREFERS TO GO TO [facility] ([place], [place]) FOR AFTERCARE. COPY OF RESULTS REPORT FOR X-RAY OF RIGHT TIBIA/ FIBULA (HISTORY OF RECENT FALL) GIVEN TO PATIENT TO TAKE WITH HIM AT TIME OF DISCHARGE FROM DETOX UNIT. PATIENT ADVISED TO FOLLOW-UP WITH DIVER PUMPER DR. Buffy QUINN ( [place], [place]) SOON POSSIBLE AFTER DISCHARGE FROM DETOX UNIT FOR FURTHER EVALUATION OF INJURY. PATIENT VERBALIZED UNDERSTANDING OF RECOMMENDATION. PATIENT WAS DISCHARGED FROM DETOX UNIT IN STABLE MEDICAL CONDITION. Pertinent Past History: HTN, Nicotine Dependence, Fracture of Tibia/Fibula. - Physical Exam Results Vital Signs: Vital Signs Temperature 97.7 F 04/16/18 08:35 Pulse Rate 85 04/16/18 08:35 Respiratory Rate 16 04/16/18 08:35 Blood Pressure 116/67 04/16/18 08:35 O2 Sat by Pulse Oximetry (%) Pertinent Admission Physical Exam Findings: WITHDRAWAL SYMPTOMS. Laboratory Tests 04/12/18 04/13/18 04/13/18 13:47 07:55 07:55 WBC 5.7 RBC 4.09 Hgb 12.7 Hct 36.9 MCV 90.2 MCH 31.0 MCHC 34.4 RDW 14.8 Plt Count 203 MPV 8.6 Sodium 140 Potassium 3.9 Chloride 105 Carbon Dioxide 29 Anion Gap 6 L BUN 18 Creatinine 1.0 Creat Clearance w eGFR > 60 Random Glucose 115 H Calcium 8.1 L Total Bilirubin 0.9 AST 29 ALT 44 Alkaline Phosphatase 95 Total Protein 6.8 Albumin 3.2 L Urine Color Yellow Urine Appearance Turbid Urine pH 5.0 Ur Specific [place] 1.029 Urine Protein 1+ H Urine Glucose (UA) Negative Urine Ketones Trace H Urine Blood Negative Urine Nitrite Negative Urine Bilirubin Negative Urine Urobilinogen Negative Ur Leukocyte Esterase Negative Urine WBC (Auto) None Urine RBC (Auto) None Urine Bacteria Few Urine Mucus Rare RPR Titer 04/13/18 07:55 WBC RBC Hgb Hct MCV MCH MCHC RDW Plt Count MPV Sodium Potassium Chloride Carbon Dioxide Anion Gap BUN Creatinine Creat Clearance w eGFR Random Glucose Calcium Total Bilirubin AST ALT Alkaline Phosphatase Total Protein Albumin Urine Color Urine Appearance Urine pH Ur Specific [place] Urine Protein Urine Glucose (UA) Urine Ketones Urine Blood Urine Nitrite Urine Bilirubin Urine Urobilinogen Ur Leukocyte Esterase Urine WBC (Auto) Urine RBC (Auto) Urine Bacteria Urine Mucus RPR Titer Nonreactive LABS NOTED. - Treatment Hospital Course: Detox Protocol Followed, Detoxed Safely, Responded well, Discharged Condition Good Patient has Accepted a Rehab Referral to: PT. GOING TO [facility] ([place], [place] - Medication Discharge Medications: Ambulatory Orders NK [No Known Home Medication] 12/21/17 - Diagnosis (1) Fracture tibia/fibula Status: Acute Qualifiers: Encounter type: initial encounter Fracture type: closed Laterality: left Qualified Code(s): S82.202A - Unspecified fracture of shaft of left tibia, initial encounter for closed fracture; S82.402A - Unspecified fracture of shaft of left fibula, initial encounter for closed fracture (2) Alcohol dependence with uncomplicated withdrawal Status: Acute (3) Cocaine dependence Status: Chronic Qualifiers: Substance use status: uncomplicated Qualified Code(s): F14.20 - Cocaine dependence, uncomplicated (4) Nicotine dependence Status: Chronic Qualifiers: Nicotine product type: cigarettes Substance use status: uncomplicated Qualified Code(s): F17.210 - Nicotine dependence, cigarettes, uncomplicated - AMA Did Patient Leave Against Medical Advice: No
== END 2018-04-16 08:53 | disposition home or self-care (01) | DRG 774 ==
LOC: YASAS 08:24 → Y6N 09:47
PROVIDERS: ADMIT Neuromusculoskeletal Medicine & OMM; ATTEND Neuromusculoskeletal Medicine & OMM
PROC: HZ2ZZZZ Detoxification Services for Substance Abuse Treatment (ICD-10-PCS; principal; 2018-04-12)
DX: F10.230 Alcohol dependence with withdrawal, uncomplicated (principal); F14.20 Cocaine dependence, uncomplicated; F17.210 Nicotine dependence, cigarettes, uncomplicated; I10 Essential (primary) hypertension; S82.402D Unspecified fracture of shaft of left fibula, subsequent encounter for closed fracture with routine healing; Z91.81 History of falling
CPT/HCPCS: 36415; 73590-TC-LT-FY; 80053; 81003; 81015; 85027; 86593

== ENCOUNTER 2018-06-03 11:46 | Inpatient (IN) | payer OTHER ==
[2018-06-03 12:26] VITALS: BMI 35.5
--- NOTE | 2018-06-03 16:02 | HP ---
CIWA Score Nausea/Vomitin-No Nausea/No Vomiting Muscle Tremors: 3 Anxiety: 3 Agitation: 0-Normal Activity Paroxysmal Sweats: 2 Orientation: 1-Uncertain about Date Tacttile Disturbances: 1-Very Mild Itch/Numbness Auditory Disturbances: 0-None Visual Disturbances: 2-Mild Sensitivity Headache: 3-Moderate CIWA-Ar Total Score: 15 - Admission Criteria OASAS Guidelines: Admission for Medically Managed Detox: Requires at least one of the followin. CIWA greater than 12 2. Seizures within the past 24 hours 3. Delirium tremens within the past 24 hours 4. Hallucinations within the past 24 hours 5. Acute intervention needed for co occurring medical disorder 6. Acute intervention needed for co occurring psychiatric disorder 7. Severe withdrawal that cannot be handled at a lower level of care (continued vomiting, continued diarrhea, abnormal vital signs) requiring intravenous medication and/or fluids 8. Patient presents the following: CIWA greater than 12 Admission Criteria Met: Admission criteria met Admission ROS S - [facility] Chief Complaint: alcohol detox Allergies/Adverse Reactions: Allergies Allergy/AdvReac Type Severity Reaction Status Date / Time No Known Allergies Allergy Verified 06/03/18 13:46 History of Present Illness: 52 yo male with hx of nicotine, alcohol and cocaine dependence is here seeking alcohol detox. Last detox [facility] one month ago, relapse soon after. Longest period of sobriety 14 months. Denies psych and medical hx. Denies suicidal / homicidal ideation or suicide attempt. Denies hx of seizure, reports hx of ETOH blackouts with last episode two weeks ago. Exam Limitations: No Limitations - Ebola screening Have you traveled outside of the country in the last 21 days: No Have you had contact with anyone from an Ebola affected area: No Have you been sick,other than usual withdrawal symptoms: No Do you have a fever: No - Review of Systems Constitutional: Diaphoresis, Changes in sleep, Other (weight gain) EENT: reports: No Symptoms Reported Respiratory: reports: Cough (x 3 days) Cardiac: reports: No Symptoms Reported GI: reports: Constipated (last BM yesterday), Poor Fluid Intake : reports: No Symptoms Reported Musculoskeletal: reports: No Symptoms Reported Integumentary: reports: Dryness Neuro: reports: Headache Endocrine: reports: Increased Thirst Hematology: reports: No Symptoms Reported Psychiatric: reports: Orientated x3, Anxious Other Systems: Reviewed and Negative Patient History - Patient Medical History Hx Anemia: No Hx Asthma: No Hx Chronic Obstructive Pulmonary Disease (COPD): No Hx Cancer: No Hx Cardiac Disorders: No Hx Congestive Heart Failure: No Hx Hypertension: No Hx Hypercholesterolemia: No Hx Pacemaker: No HX Cerebrovascular Accident: No Hx Seizures: No Hx Dementia: No Hx Diabetes: No Hx Gastrointestinal Disorders: No Hx Liver Disease: No Hx Genitourinary Disorders: No Hx Sexually Transmitted Disorders: No Hx Renal Disease (ESRD): No Hx Thyroid Disease: No Hx Human Immunodeficiency Virus (HIV): No (LAST 06/08 negtive) Hx Hepatitis C: No Hx Depression: No Hx Suicide Attempt: No Hx Bipolar Disorder: No Hx Schizophrenia: No - Patient Surgical History Past Surgical History: Yes Hx Neurologic Surgery: No Hx Cataract Extraction: No Hx Cardiac Surgery: No Hx Lung Surgery: No Hx Breast Surgery: No Hx Breast Biopsy: No Hx Abdominal Surgery: No Hx Appendectomy: No Hx Cholecystectomy: No Hx Genitourinary Surgery: No Hx Section: No Hx Orthopedic Surgery: Yes (RIGHT FOOT BUNION SURGERY 2016) Anesthesia Reaction: No - PPD History Previous Implant?: Yes Documented Results: Negative w/proof Date: 12/23/17 Results: NEGATIVE PPD to be Administered?: No - Reproductive History Patient : No - Smoking Cessation Smoking history: Current every day smoker Have you smoked in the past 12 months: Yes Aproximately how many cigarettes per day: 10 Cigars Per Day: 0 Hx Chewing Tobacco Use: No Initiated information on smoking cessation: Yes 'Breaking Loose' booklet given: 06/03/18 - Substance & Tx. History Hx Alcohol Use: Yes Hx Substance Use: Yes Substance Use Type: Alcohol, Cocaine Hx Substance Use Treatment: Yes (Detox [facility] one month ago) - Substances Abused Alcohol Route: Oral Frequency: Daily Amount used: 3 pt. vodka, 4 cans beers ( 24 oz each) Age of first use: 15 Date of Last Use: 06/03/18 (4AM) Cocaine Route: Inhalation Frequency: 3-6 times per week Amount used: 1 gram Age of first use: 17 Date of Last Use: 06/03/18 Family Disease History - Family Disease History Family Disease History: Other: Brother (ETOH DEPENDENT), Sister (ETOH DEPENDENT) Admission Physical Exam BHS - Vital Signs Vital Signs: Vital Signs - 24 hr 06/03/18 12:23 Temperature 96.1 F L Pulse Rate 94 H Respiratory 18 Rate Blood Pressure 138/81 - Physical General Appearance: Yes: Appropriately Dressed, Mild Distress, Obese, Sweating, Anxious HEENTM: Yes: EOMI, Hearing grossly Normal, Normal ENT Inspection, Normal Voice, JENARO, Pharynx Normal, Tm's normal Respiratory: Yes: Chest Non-Tender, Lungs Clear, Normal Breath Sounds, No Respiratory Distress, No Accessory Muscle Use Neck: Yes: Within Normal Limits Breast: Yes: Breast Exam Deferred Cardiology: Yes: Regular Rhythm, Regular Rate Abdominal: Yes: Normal Bowel Sounds, Non Tender, Soft, Protuberent Genitourinary: Yes: Within Normal Limits Back: Yes: Normal Inspection Musculoskeletal: Yes: full range of Motion, Gait Steady, Pelvis Stable Extremities: Yes: Normal Capillary Refill, Normal Inspection, Normal Range of Motion, Non-Tender Neurological: Yes: pile driving technician II-XII NML intact, Fully Oriented, Alert, Motor Strength 5/5, Depressed Affect Integumentary: Yes: Normal Color, Warm, Diaphoresis Lymphatic: Yes: Within Normal Limits - Diagnostic (1) Alcohol dependence with uncomplicated withdrawal Current Visit: Yes Status: Acute (2) Cocaine dependence Current Visit: Yes Status: Chronic Qualifiers: Substance use status: uncomplicated Qualified Code(s): F14.20 - Cocaine dependence, uncomplicated (3) Nicotine dependence Current Visit: Yes Status: Chronic Qualifiers: Nicotine product type: cigarettes Substance use status: uncomplicated Qualified Code(s): F17.210 - Nicotine dependence, cigarettes, uncomplicated (4) Nicotine dependence in remission Current Visit: Yes Status: Acute Qualifiers: Nicotine product type: cigarettes Qualified Code(s): F17.211 - Nicotine dependence, cigarettes, in remission Cleared for Admission [facility] - Detox or Rehab [facility] Level of Care: Medically Managed Detox Regimen/Protocol: Librium [facility] Breath Alcohol Content Breath Alcohol Content: 0.076 Urine Drug Screen - Results Drug Screen Negative: No Urine Drug Screen Results: ERICK-Cocaine, BZO-Benzodiazepines Inpatient Rehab Admission - Rehab Decision to Admit Inpatient rehab admission?: No
[2018-06-03] MEDS ORDERED: MAG HYDROX/AL HYDROX/SIMETH 30 ML UNIT-DOSE CUP PO PRN (16:03)
[2018-06-03] MEDS ORDERED: ONDANSETRON *ODT* 4 MG TABLET SL PRN (16:03)
[2018-06-03] MEDS ORDERED: NICOTINE POLACRILEX 2 MG GUM BUC PRN (16:03)
[2018-06-03] MEDS ORDERED: ACETAMINOPHEN 325 MG TABLET (FP) PO PRN ×2 (16:03)
[2018-06-03] MEDS ORDERED: chlordiazePOXIDE HCL 25 MG CAPSULE PO PRN (16:03)
[2018-06-03] MEDS ORDERED: IBUPROFEN 400 MG TABLET (FP) PO PRN (16:03)
[2018-06-03] MEDS ORDERED: METHOCARBAMOL 500 MG TABLET PO PRN (16:03)
[2018-06-03] MEDS ORDERED: MAGNESIUM CITRATE 300 ML BOTTLE PO PRN (16:03)
[2018-06-03] MEDS ORDERED: BISMUTH SUBSALICYLATE 524 MG/30 ML UD PO PRN (16:03)
[2018-06-03] MEDS ORDERED: MAGNESIUM HYDROX 2400MG/30ML ORAL SUSPENSION 30 ML CUP PO PRN (16:03)
[2018-06-03] MEDS ORDERED: MENTHOL/PHENOL 1 EACH UD MM PRN (16:03)
[2018-06-03] MEDS: chlordiazePOXIDE HCL 25 MG CAPSULE PO SCH (22:18)
[2018-06-03] MEDS: THIAMINE HCL 100 MG TABLET (FP) PO SCH (22:18)
[2018-06-03] MEDS: MELATONIN 5 MG TABLETS PO PRN (23:38)
[2018-06-03] MEDS: hydrOXYzine PAMOATE 25 MG CAPSULE (FP) PO PRN (23:38)
[2018-06-04] MEDS: chlordiazePOXIDE HCL 25 MG CAPSULE PO SCH ×4 (05:05→22:06)
[2018-06-04] MEDS: NICOTINE 14 MG/24 HOURS TOPICAL PATCH TD SCH (10:04)
[2018-06-04] MEDS: PRENATAL VITAMINS W/ FOLIC ACID TABLET (FP) PO SCH (10:04)
[2018-06-04 10:23] LABS: HEMATOCRIT 38.9 % (35.4-49); HEMOGLOBIN 13.3 GM/dL (11.7-16.9); MCH 31.6 pg (25.7-33.7); MCHC 34.2 g/dl (32.0-35.9); MEAN CELL VOLUME 92.2 fl (80-96); MEAN PLT VOLUME 8.3 fl (7.5-11.1); PLATELET COUNT 233 K/MM3 (134-434); RBC 4.22 M/mm3 (4.00-5.60); WHITE BLOOD COUNT 6.7 K/mm3 (4.0-10.0)
[2018-06-04 11:02] LABS: ALBUMIN 3.3 g/dl (3.4-5.0); ALK PHOS 96 U/L (45-117); ANION GAP 6 MMOL/L (8-16); BILIRUBIN,TOTAL 0.4 mg/dL (0.2-1); BLOOD UREA NITROGEN 14 mg/dL (7-18); CALCIUM 8.3 mg/dL (8.5-10.1); CHLORIDE 104 mmol/L (98-107); CO2 28 mmol/L (21-32); CREATININE 1.2 mg/dL (0.55-1.3); GLUCOSE,RANDOM 107 mg/dL (74-106); POTASSIUM 4.1 mmol/L (3.5-5.1); SGOT/AST 30 U/L (15-37); SGPT/ALT 38 U/L (13-61); SODIUM 138 mmol/L (136-145); TOT PROT 7.1 g/dl (6.4-8.2)
--- NOTE | 2018-06-04 11:32 | PN ---
S CIWA - CIWA Score Nausea/Vomitin-No Nausea/No Vomiting Muscle Tremors: 3 Anxiety: 3 Agitation: 4-Moderately Restless Paroxysmal Sweats: 2 Orientation: 0-Oriented Tacttile Disturbances: 0-None Auditory Disturbances: 0-None Visual Disturbances: 0-None Headache: 0-None Present CIWA-Ar Total Score: 12 BHS Progress Note (SOAP) Subjective: sweats tired sleepy body aches interrupted sleep Objective: 06/04/18 11:18 Vital Signs Temperature 97.6 F 06/04/18 09:50 Pulse Rate 82 06/04/18 09:50 Respiratory Rate 18 06/04/18 09:50 Blood Pressure 113/68 06/04/18 09:50 O2 Sat by Pulse Oximetry (%) Laboratory Tests 06/04/18 06/04/18 07:00 07:00 WBC 6.7 RBC 4.22 Hgb 13.3 Hct 38.9 MCV 92.2 MCH 31.6 MCHC 34.2 RDW 15.0 Plt Count 233 MPV 8.3 Sodium 138 Potassium 4.1 Chloride 104 Carbon Dioxide 28 Anion Gap 6 L BUN 14 Creatinine 1.2 Creat Clearance w eGFR > 60 Random Glucose 107 H Calcium 8.3 L Total Bilirubin 0.4 AST 30 ALT 38 Alkaline Phosphatase 96 Total Protein 7.1 Albumin 3.3 L aaox3 ambulating no acute distress Assessment: 06/04/18 11:45 withdrawal sx Plan: continue detox increase fluids
[2018-06-04] MEDS: THIAMINE HCL 100 MG TABLET (FP) PO SCH (22:06)
[2018-06-04] MEDS: MELATONIN 5 MG TABLETS PO PRN (22:06)
[2018-06-05] MEDS: chlordiazePOXIDE HCL 25 MG CAPSULE PO SCH ×3 (06:25→17:01)
[2018-06-05] MEDS: NICOTINE 14 MG/24 HOURS TOPICAL PATCH TD SCH (10:41)
[2018-06-05] MEDS: PRENATAL VITAMINS W/ FOLIC ACID TABLET (FP) PO SCH (10:41)
--- NOTE | 2018-06-05 12:28 | PN ---
S CIWA - CIWA Score Nausea/Vomitin-No Nausea/No Vomiting Muscle Tremors: 3 Anxiety: 3 Agitation: 2 Paroxysmal Sweats: 2 Orientation: 0-Oriented Tacttile Disturbances: 0-None Auditory Disturbances: 0-None Visual Disturbances: 0-None Headache: 0-None Present CIWA-Ar Total Score: 10 BHS Progress Note (SOAP) Subjective: feeling better some sweats tired interrupted sleep Objective: 06/05/18 12:27 Vital Signs Temperature 98.1 F 06/05/18 09:19 Pulse Rate 101 H 06/05/18 09:19 Respiratory Rate 18 06/05/18 09:19 Blood Pressure 140/85 06/05/18 09:19 O2 Sat by Pulse Oximetry (%) Laboratory Tests 06/04/18 06/04/18 06/04/18 07:00 07:00 07:00 WBC 6.7 RBC 4.22 Hgb 13.3 Hct 38.9 MCV 92.2 MCH 31.6 MCHC 34.2 RDW 15.0 Plt Count 233 MPV 8.3 Sodium 138 Potassium 4.1 Chloride 104 Carbon Dioxide 28 Anion Gap 6 L BUN 14 Creatinine 1.2 Creat Clearance w eGFR > 60 Random Glucose 107 H Calcium 8.3 L Total Bilirubin 0.4 AST 30 ALT 38 Alkaline Phosphatase 96 Total Protein 7.1 Albumin 3.3 L RPR Titer HIV 1&2 Antibody Screen Negative HIV P24 Antigen Negative 06/04/18 07:00 WBC RBC Hgb Hct MCV MCH MCHC RDW Plt Count MPV Sodium Potassium Chloride Carbon Dioxide Anion Gap BUN Creatinine Creat Clearance w eGFR Random Glucose Calcium Total Bilirubin AST ALT Alkaline Phosphatase Total Protein Albumin RPR Titer Nonreactive HIV 1&2 Antibody Screen HIV P24 Antigen aaox3 ambulating no acute distress Assessment: 06/05/18 12:27 withdrawal sx Plan: continue detox increase fluids
[2018-06-05] MEDS ORDERED: guaiFENesin 200 MG/10 ML 10 ML UNIT-DOSE CUPS PO PRN (12:30)
[2018-06-05] MEDS: THIAMINE HCL 100 MG TABLET (FP) PO SCH (22:16)
[2018-06-05] MEDS: MELATONIN 5 MG TABLETS PO PRN (22:16)
[2018-06-05] MEDS: chlordiazePOXIDE HCL 10 MG CAPSULE PO SCH (22:32)
[2018-06-05] MEDS ORDERED: chlordiazePOXIDE HCL 10 MG CAPSULE PO PRN (23:00)
[2018-06-06] MEDS: hydrOXYzine PAMOATE 25 MG CAPSULE (FP) PO PRN ×2 (00:35→22:38)
[2018-06-06] MEDS: chlordiazePOXIDE HCL 10 MG CAPSULE PO SCH ×4 (07:03→22:39)
[2018-06-06] MEDS: PRENATAL VITAMINS W/ FOLIC ACID TABLET (FP) PO SCH (10:39)
[2018-06-06] MEDS: NICOTINE 14 MG/24 HOURS TOPICAL PATCH TD SCH (10:40)
--- NOTE | 2018-06-06 11:39 | PN ---
S Progress Note (SOAP) Subjective: Generalized body aches and fatigue Objective: 06/06/18 11:38 Last Vital Signs Temp Pulse Resp BP Pulse Ox 97.7 F 80 18 120/83 06/06/18 10:13 06/06/18 10:13 06/06/18 10:13 06/06/18 10:13 Laboratory Last Values WBC 6.7 K/mm3 (4.0-10.0) 06/04/18 07:00 RBC 4.22 M/mm3 (4.00-5.60) 06/04/18 07:00 Hgb 13.3 GM/dL (11.7-16.9) 06/04/18 07:00 Hct 38.9 % (35.4-49) 06/04/18 07:00 MCV 92.2 fl (80-96) 06/04/18 07:00 MCH 31.6 pg (25.7-33.7) 06/04/18 07:00 MCHC 34.2 g/dl (32.0-35.9) 06/04/18 07:00 RDW 15.0 % (11.9-15.9) 06/04/18 07:00 Plt Count 233 K/MM3 (134-434) 06/04/18 07:00 MPV 8.3 fl (7.5-11.1) 06/04/18 07:00 Sodium 138 mmol/L (136-145) 06/04/18 07:00 Potassium 4.1 mmol/L (3.5-5.1) 06/04/18 07:00 Chloride 104 mmol/L (98-107) 06/04/18 07:00 Carbon Dioxide 28 mmol/L (21-32) 06/04/18 07:00 Anion Gap 6 MMOL/L (8-16) L 06/04/18 07:00 BUN 14 mg/dL (7-18) 06/04/18 07:00 Creatinine 1.2 mg/dL (0.55-1.3) 06/04/18 07:00 Creat Clearance w eGFR > 60 (>60) 06/04/18 07:00 Random Glucose 107 mg/dL (74-106) H 06/04/18 07:00 Calcium 8.3 mg/dL (8.5-10.1) L 06/04/18 07:00 Total Bilirubin 0.4 mg/dL (0.2-1) 06/04/18 07:00 AST 30 U/L (15-37) 06/04/18 07:00 ALT 38 U/L (13-61) 06/04/18 07:00 Alkaline Phosphatase 96 U/L (45-117) 06/04/18 07:00 Total Protein 7.1 g/dl (6.4-8.2) 06/04/18 07:00 Albumin 3.3 g/dl (3.4-5.0) L 06/04/18 07:00 RPR Titer Nonreactive (NONREACTIVE) 06/04/18 07:00 HIV 1&2 Antibody Screen Negative 06/04/18 07:00 HIV P24 Antigen Negative 06/04/18 07:00 Labs noted Assessment: 06/06/18 11:38 Withdrawal sx Plan: Continue detox
[2018-06-06] MEDS: THIAMINE HCL 100 MG TABLET (FP) PO SCH (22:38)
[2018-06-07] MEDS: PRENATAL VITAMINS W/ FOLIC ACID TABLET (FP) PO SCH (10:09)
[2018-06-07] MEDS: chlordiazePOXIDE HCL 10 MG CAPSULE PO SCH ×2 (10:09→22:07)
[2018-06-07] MEDS: NICOTINE 14 MG/24 HOURS TOPICAL PATCH TD SCH (10:09)
--- NOTE | 2018-06-07 13:01 | PN ---
[facility] Progress Note Note: Vital Signs Temperature 97.9 F 06/07/18 09:39 Pulse Rate 90 06/07/18 09:39 Respiratory Rate 18 06/07/18 09:39 Blood Pressure 113/73 06/07/18 09:39 O2 Sat by Pulse Oximetry (%) Laboratory Last Values WBC 6.7 K/mm3 (4.0-10.0) 06/04/18 07:00 RBC 4.22 M/mm3 (4.00-5.60) 06/04/18 07:00 Hgb 13.3 GM/dL (11.7-16.9) 06/04/18 07:00 Hct 38.9 % (35.4-49) 06/04/18 07:00 MCV 92.2 fl (80-96) 06/04/18 07:00 MCH 31.6 pg (25.7-33.7) 06/04/18 07:00 MCHC 34.2 g/dl (32.0-35.9) 06/04/18 07:00 RDW 15.0 % (11.9-15.9) 06/04/18 07:00 Plt Count 233 K/MM3 (134-434) 06/04/18 07:00 MPV 8.3 fl (7.5-11.1) 06/04/18 07:00 Sodium 138 mmol/L (136-145) 06/04/18 07:00 Potassium 4.1 mmol/L (3.5-5.1) 06/04/18 07:00 Chloride 104 mmol/L (98-107) 06/04/18 07:00 Carbon Dioxide 28 mmol/L (21-32) 06/04/18 07:00 Anion Gap 6 MMOL/L (8-16) L 06/04/18 07:00 BUN 14 mg/dL (7-18) 06/04/18 07:00 Creatinine 1.2 mg/dL (0.55-1.3) 06/04/18 07:00 Creat Clearance w eGFR > 60 (>60) 06/04/18 07:00 Random Glucose 107 mg/dL (74-106) H 06/04/18 07:00 Calcium 8.3 mg/dL (8.5-10.1) L 06/04/18 07:00 Total Bilirubin 0.4 mg/dL (0.2-1) 06/04/18 07:00 AST 30 U/L (15-37) 06/04/18 07:00 ALT 38 U/L (13-61) 06/04/18 07:00 Alkaline Phosphatase 96 U/L (45-117) 06/04/18 07:00 Total Protein 7.1 g/dl (6.4-8.2) 06/04/18 07:00 Albumin 3.3 g/dl (3.4-5.0) L 06/04/18 07:00 RPR Titer Nonreactive (NONREACTIVE) 06/04/18 07:00 HIV 1&2 Antibody Screen Negative 06/04/18 07:00 HIV P24 Antigen Negative 06/04/18 07:00 c/o anxious, nausea withdrawal sx Aox3 no distress full ROM ambulating in the unit continue detox d/c in AM
[2018-06-07] MEDS: MELATONIN 5 MG TABLETS PO PRN (22:07)
[2018-06-07] MEDS: THIAMINE HCL 100 MG TABLET (FP) PO SCH (22:07)
--- NOTE | 2018-06-08 08:45 | DS ---
[facility] Detox Discharge Summary Admission Date: 06/03/18 Discharge Date: 06/08/18 - History Present History: Alcohol Dependence, Cocaine Dependence - Physical Exam Results Vital Signs: Vital Signs Temperature 96.8 F L 06/08/18 06:48 Pulse Rate 72 06/08/18 06:48 Respiratory Rate 18 06/08/18 06:48 Blood Pressure 122/78 06/08/18 06:48 O2 Sat by Pulse Oximetry (%) - Treatment Hospital Course: Detox Protocol Followed, Detoxed Safely, Responded well, Discharged Condition Good, Rehab Referral Accepted - Medication Discharge Medications: Ambulatory Orders NK [No Known Home Medication] 12/21/17 - Diagnosis (1) Alcohol dependence with uncomplicated withdrawal Current Visit: Yes Status: Chronic (2) Cocaine dependence Current Visit: Yes Status: Chronic Qualifiers: Substance use status: uncomplicated Qualified Code(s): F14.20 - Cocaine dependence, uncomplicated (3) Nicotine dependence Current Visit: Yes Status: Chronic Qualifiers: Nicotine product type: cigarettes Substance use status: uncomplicated Qualified Code(s): F17.210 - Nicotine dependence, cigarettes, uncomplicated (4) Fracture tibia/fibula Current Visit: No Status: Chronic Qualifiers: Encounter type: initial encounter Fracture type: closed Laterality: left Qualified Code(s): S82.202A - Unspecified fracture of shaft of left tibia, initial encounter for closed fracture; S82.402A - Unspecified fracture of shaft of left fibula, initial encounter for closed fracture (5) Fracture tibia/fibula Current Visit: No Status: Acute (6) Syncope Current Visit: No Status: Acute (7) Weight loss Current Visit: No Status: Acute (8) Eczema Current Visit: Yes Status: Chronic Qualifiers: Eczema type: unspecified Qualified Code(s): L30.9 - Dermatitis, unspecified (9) HTN (hypertension) Current Visit: Yes Status: Chronic Qualifiers: Hypertension type: essential hypertension Qualified Code(s): I10 - Essential (primary) hypertension - AMA Did Patient Leave Against Medical Advice: No (referred to inpatient rehab)
[2018-06-08 09:19] VITALS: BP 113/71; PULSE 86; TEMP 97
== END 2018-06-08 09:01 | disposition home or self-care (01) | DRG 774 ==
LOC: YASAS 11:46 → Y6N 16:33
PROVIDERS: ADMIT Surgery; ATTEND Surgery
PROC: HZ2ZZZZ Detoxification Services for Substance Abuse Treatment (ICD-10-PCS; principal; 2018-06-03)
DX: F10.230 Alcohol dependence with withdrawal, uncomplicated (principal); F14.20 Cocaine dependence, uncomplicated; F17.210 Nicotine dependence, cigarettes, uncomplicated; I10 Essential (primary) hypertension; L30.9 Dermatitis, unspecified; R63.4 Abnormal weight loss; Z68.35 Body mass index [BMI] 35.0-35.9, adult; Z87.81 Personal history of (healed) traumatic fracture; Z59.0 Homelessness
CPT/HCPCS: 36415; 80053; 85027; 86593; 87389

== ENCOUNTER 2019-02-10 08:55 | Inpatient (IN) | payer OTHER ==
[2019-02-10 09:10] VITALS: BMI 31.3
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
[2019-02-10] MEDS ORDERED: MAGNESIUM HYDROX 2400MG/30ML ORAL SUSPENSION 30 ML CUP PO PRN (10:24)
[2019-02-10] MEDS ORDERED: BISMUTH SUBSALICYLATE 262 MG/15 ML BTL PO PRN (10:24)
[2019-02-10] MEDS ORDERED: IBUPROFEN 400 MG TABLET (FP) PO PRN (10:24)
[2019-02-10] MEDS ORDERED: hydrOXYzine PAMOATE 25 MG CAPSULE (FP) PO PRN (10:24)
[2019-02-10] MEDS ORDERED: METHOCARBAMOL 500 MG TABLET PO PRN (10:24)
[2019-02-10] MEDS ORDERED: MELATONIN 5 MG TABLETS PO PRN (10:24)
[2019-02-10] MEDS ORDERED: LORazepam 1 MG TABLET PO PRN (10:24)
[2019-02-10] MEDS ORDERED: ACETAMINOPHEN 325 MG TABLET (FP) PO PRN ×2 (10:24)
[2019-02-10] MEDS ORDERED: MENTHOL/PHENOL 1 EACH UD MM PRN (10:24)
[2019-02-10] MEDS ORDERED: MAGNESIUM CITRATE 300 ML BOTTLE PO PRN (10:24)
[2019-02-10] MEDS ORDERED: MAG HYDROX/AL HYDROX/SIMETH 30 ML UNIT-DOSE CUP PO PRN (10:24)
[2019-02-10 14:42] LABS: HEMATOCRIT 40.4 % (35.4-49); HEMOGLOBIN 13.3 GM/dL (11.7-16.9); MCH 29.8 pg (25.7-33.7); MCHC 32.8 g/dl (32.0-35.9); MEAN CELL VOLUME 90.7 fl (80-96); MEAN PLT VOLUME 8.6 fl (7.5-11.1); PLATELET COUNT 202 K/MM3 (134-434); RBC 4.46 M/mm3 (4.00-5.60); RDW 14.8 % (11.9-15.9); WHITE BLOOD COUNT 9.5 K/mm3 (4.0-10.0)
[2019-02-10 14:51] LABS: ALBUMIN 4.1 g/dl (3.4-5.0); BILIRUBIN,TOTAL 0.3 mg/dL (0.2-1); BLOOD UREA NITROGEN 10.3 mg/dL (7-18); CALCIUM 8.8 mg/dL (8.5-10.1); CREATININE 1.1 mg/dL (0.55-1.3); POTASSIUM 4.4 mmol/L (3.5-5.1); TOT PROT 7.7 g/dl (6.4-8.2)
[2019-02-10] MEDS: LORazepam 2 MG TABLET PO SCH ×3 (14:55→22:24)
[2019-02-10] MEDS: THIAMINE HCL 100 MG TABLET (FP) PO SCH (22:24)
[2019-02-11] MEDS: LORazepam 2 MG TABLET PO SCH ×4 (06:51→22:15)
[2019-02-11] MEDS ORDERED: PRENATAL VITAMINS W/ FOLIC ACID TABLET (FP) PO SCH (10:00)
--- NOTE | 2019-02-11 11:20 | PN ---
S CIWA - CIWA Score Nausea/Vomitin-No Nausea/No Vomiting Muscle Tremors: 3 Anxiety: 3 Agitation: 3 Paroxysmal Sweats: 3 Orientation: 0-Oriented Tacttile Disturbances: 0-None Auditory Disturbances: 0-None Visual Disturbances: 0-None Headache: 0-None Present CIWA-Ar Total Score: 12 BHS Progress Note (SOAP) Subjective: sweats shakes body aches interrupted sleep Objective: 02/11/19 11:19 Vital Signs Temperature 97.7 F 02/11/19 06:24 Pulse Rate 67 02/11/19 06:24 Respiratory Rate 18 02/11/19 06:24 Blood Pressure 125/66 02/11/19 06:24 O2 Sat by Pulse Oximetry (%) Laboratory Tests 02/10/19 02/10/19 02/10/19 10:40 10:40 10:41 WBC 9.5 RBC 4.46 Hgb 13.3 Hct 40.4 MCV 90.7 MCH 29.8 MCHC 32.8 RDW 14.8 Plt Count 202 MPV 8.6 Sodium 140 Potassium 4.4 Chloride 107 Carbon Dioxide 27 Anion Gap 6 L BUN 10.3 Creatinine 1.1 Est GFR (CKD-EPI)AfAm 88.36 Est GFR (CKD-EPI)NonAf 76.24 Random Glucose 105 Calcium 8.8 Total Bilirubin 0.3 AST 31 ALT 48 Alkaline Phosphatase 83 Total Protein 7.7 Albumin 4.1 RPR Titer Nonreactive labs noted aaox3 ambulating no acute distress Assessment: 02/11/19 11:19 withdrawal sx Plan: continue detox increase fluids
[2019-02-11] MEDS: THIAMINE HCL 100 MG TABLET (FP) PO SCH (22:15)
[2019-02-12] MEDS ORDERED: LORazepam 1 MG TABLET PO SCH (05:00)
[2019-02-12 06:31] VITALS: TEMP 97.7
[2019-02-12 09:51] VITALS: BP 138/79; PULSE 77
--- NOTE | 2019-02-12 10:23 | PN ---
[facility] Progress Note Note: pt refused to stay and complete his detox. pt refused to elaborate his reason for leaving only states " I just want to go". pt was advised and encouraged to stay to prevent relapse, seizures, OD, DT, loss, however, pt chose to sign out AMA.
--- NOTE | 2019-02-12 10:24 | DS ---
[facility] Detox Discharge Summary Admission Date: 02/10/19 - History Present History: Alcohol Dependence, Cocaine Dependence - Physical Exam Results Vital Signs: Vital Signs Temperature 97.7 F 02/12/19 09:50 Pulse Rate 77 02/12/19 09:50 Respiratory Rate 20 02/12/19 09:50 Blood Pressure 138/79 02/12/19 09:50 O2 Sat by Pulse Oximetry (%) - Treatment Hospital Course: Rehab Referral Accepted - Medication Discharge Medications: Ambulatory Orders NK [No Known Home Medication] 12/21/17 - Diagnosis (1) Alcohol dependence with uncomplicated withdrawal Current Visit: Yes Status: Chronic (2) Cocaine dependence Current Visit: Yes Status: Chronic Qualifiers: Substance use status: uncomplicated Qualified Code(s): F14.20 - Cocaine dependence, uncomplicated (3) Nicotine dependence Current Visit: Yes Status: Chronic Qualifiers: Nicotine product type: cigarettes Substance use status: uncomplicated Qualified Code(s): F17.210 - Nicotine dependence, cigarettes, uncomplicated (4) Eczema Current Visit: Yes Status: Chronic Qualifiers: Eczema type: unspecified Qualified Code(s): L30.9 - Dermatitis, unspecified (5) HTN (hypertension) Current Visit: Yes Status: Chronic Qualifiers: Hypertension type: essential hypertension Qualified Code(s): I10 - Essential (primary) hypertension - AMA Did Patient Leave Against Medical Advice: Yes
[2019-02-13] MEDS ORDERED: LORazepam 0.5 MG TABLET PO PRN
[2019-02-13] MEDS ORDERED: LORazepam 0.5 MG TABLET PO SCH (05:00)
[2019-02-14] MEDS ORDERED: LORazepam 0.5 MG TABLET PO ONE (05:00)
== END 2019-02-12 09:31 | disposition left against medical advice (07) | DRG 770 ==
LOC: YASAS 08:55 → Y6N 10:14
PROVIDERS: ADMIT Allergy & Immunology; ATTEND Allergy & Immunology
PROC: HZ2ZZZZ Detoxification Services for Substance Abuse Treatment (ICD-10-PCS; principal; 2019-02-10)
DX: F10.230 Alcohol dependence with withdrawal, uncomplicated (principal); F14.20 Cocaine dependence, uncomplicated; F17.210 Nicotine dependence, cigarettes, uncomplicated; I10 Essential (primary) hypertension; L30.9 Dermatitis, unspecified; Z59.0 Homelessness
CPT/HCPCS: 36415; 80053; 85027; 86593

== ENCOUNTER 2019-11-19 08:15 | Inpatient (IN) | payer OTHER ==
--- NOTE | 2019-11-19 08:55 | BHS.RME ---
Physical/Psych/Mental Status - Behavior General Behavior: Increased activity (restlessness, agitation) Eye Contact: Normal - Cooperativeness Cooperativeness: Cooperative - Thinking Thought Processes: Tight, Logical, Goal Directed - Physical Health Problems Is patient presently having any pain?: No Does patient presently have any injuries (include location): No Does patient currently have a fever: No Is patient : No CIWA Nausea/Vomitin Muscle Tremors: 3 Anxiety: 3 Agitation: 3 Paroxysmal Sweats: 4-Forehead w/Sweat Beads Orientation: 0-Oriented Tacttile Disturbances: 0-None Auditory Disturbances: 0-None Visual Disturbances: 0-None Headache: 2-Mild CIWA-Ar Total Score: 17
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
[2019-11-19 09:07] VITALS: BMI 32.8
[2019-11-19] MEDS ORDERED: ONDANSETRON *ODT* 4 MG TABLET SL ONE (09:07)
[2019-11-19] MEDS ORDERED: METHOCARBAMOL 500 MG TABLET PO PRN (09:07)
[2019-11-19] MEDS ORDERED: ACETAMINOPHEN 325 MG TABLET (FP) PO PRN ×2 (09:07)
[2019-11-19] MEDS ORDERED: IBUPROFEN 400 MG TABLET (FP) PO PRN (09:07)
[2019-11-19] MEDS ORDERED: chlordiazePOXIDE HCL 25 MG CAPSULE PO PRN (09:07)
[2019-11-19] MEDS ORDERED: MAGNESIUM CITRATE 300 ML BOTTLE PO PRN (09:07)
[2019-11-19] MEDS ORDERED: MENTHOL/PHENOL 1 EACH UD MM PRN (09:07)
[2019-11-19] MEDS ORDERED: NICOTINE POLACRILEX 2 MG GUM BUC PRN (09:07)
[2019-11-19] MEDS ORDERED: MAGNESIUM HYDROX 2400MG/30ML ORAL SUSPENSION 30 ML CUP PO PRN (09:07)
[2019-11-19] MEDS ORDERED: MAG HYDROX/AL HYDROX/SIMETH 30 ML UNIT-DOSE CUP PO PRN (09:07)
[2019-11-19] MEDS ORDERED: BISMUTH SUBSALICYLATE 524 MG/30 ML UD PO PRN (09:07)
[2019-11-19] MEDS: hydrOXYzine PAMOATE 25 MG CAPSULE (FP) PO SCH ×4 (10:48→22:47)
[2019-11-19] MEDS: PRENATAL VITAMINS W/ FOLIC ACID TABLET (FP) PO SCH (10:49)
[2019-11-19] MEDS: chlordiazePOXIDE HCL 25 MG CAPSULE PO SCH ×3 (10:49→22:47)
[2019-11-19] MEDS: NICOTINE 7 MG/24 HOURS TOPICAL PATCH TD SCH (10:49)
--- NOTE | 2019-11-19 15:10 | CONSULT ---
[facility] Psychiatric Consult - Data Date of interview: 11/19/19 Admission source: [facility] Identifying data: Readmission to [facility] at [address] [place] [address] for this 54 y/o AA male, self-referred for detoxification treatment. SHEMAR issues : alcohol, cocaine, nicotine. Patient is single, father of two, homeless, unemployed and supported on welfare. Substance Abuse History: Discussed with the patient. SHEMAR profile as follows : Smoking history: Current every day smoker. Have you smoked in the past 12 months: Yes. Aproximately how many cigarettes per day: 10. Cigars Per Day: 0. Hx Chewing Tobacco Use: No. Initiated information on smoking cessation: Yes. 'Breaking Loose' booklet given: 11/19/19. - Substances abused. Alcohol. Substance route: Oral. Frequency: Daily. Amount used: 3 pints ranjana. Age of first use: 15. Date of last use: 11/19/19. Cocaine. Substance route: Inhalation. Frequency: Daily. Amount used: 1-2 grams. Age of first use: 17. Date of last use: 11/19/19 Medical History: Patient endorses good general health. Records ([facility]) indicate history of foot surgery (bunionectomy on right foot). Psychiatric History: Patient endorses history of multiple psychiatric hospitalizations ([facility], [facility] in [place], [place]). Mr Toledo has reportedly bee diagnosed with bipolar disorder, schizophrenia and PTSD. Patient denies having a current affiliation with psychiatric [facility] care provider (used to be followed at in [place], [place]). Denies taking psychotropic medications (treated in the past with risperdal and seroquel). Denies history of suicide attempts. Physical/Sexual Abuse/Trauma History: Patient denies. Additional Comment: Urine drug screen results: ERICK-Cocaine, BZO-Benzodiazepines. Noted. Mental Status Exam - Mental Status Exam Alert and Oriented to: Time, Place, Person Cognitive Function: Good Patient Appearance: Unkempt, Disheveled Mood: Withdrawn Affect: Mood Congruent, Constricted Patient Behavior: Sedated (moderately sedated but able to maintain conversation), Fatigued Speech Pattern: Clear, Slurred Voice Loudness: Normal Thought Process: Goal Oriented Thought Disorder: Not Present Hallucinations: Denies Suicidal Ideation: Denies Homicidal Ideation: Denies Insight/Judgement: Poor Sleep: Well Appetite: Good Gait/Station: Other (not observed out of bed) Psychiatric Findings - Problem List ([place] 1, 2,3) (1) Alcohol dependence with uncomplicated withdrawal Current Visit: Yes Status: Acute (2) Cocaine dependence Current Visit: Yes Status: Chronic Qualifiers: Substance use status: uncomplicated Qualified Code(s): F14.20 - Cocaine dependence, uncomplicated (3) Nicotine dependence Current Visit: Yes Status: Chronic Qualifiers: Nicotine product type: cigarettes Substance use status: in withdrawal Qualified Code(s): F17.213 - Nicotine dependence, cigarettes, with withdrawal (4) History of schizoaffective disorder Current Visit: Yes Status: Chronic (5) Substance induced mood disorder Current Visit: Yes Status: Chronic (6) Non-compliance Current Visit: Yes Status: Chronic - Initial Treatment Plan Initial Treatment Plan: Psychoeducation. Sleep hygiene. Support. Detoxification in progress. Extruding Department Supervisor called the listed pharmacy, [facility], at [phone] : not in service. Home Medications checked : none. Observation.
[2019-11-19 15:36] LABS: HEMATOCRIT 40.8 % (35.4-49); HEMOGLOBIN 13.7 GM/dL (11.7-16.9); MCHC 33.6 g/dl (32.0-35.9); MEAN CELL VOLUME 95.2 fl (80-96); MEAN PLT VOLUME 8.5 fl (7.5-11.1); PLATELET COUNT 183 K/MM3 (134-434); RBC 4.28 M/mm3 (4.00-5.60); RDW 15.3 % (11.9-15.9); WHITE BLOOD COUNT 6.6 K/mm3 (4.0-10.0)
[2019-11-19 15:55] LABS: ALBUMIN 3.8 g/dl (3.4-5.0); BILIRUBIN,TOTAL 0.2 mg/dL (0.2-1); BLOOD UREA NITROGEN 14.2 mg/dL (7-18); CALCIUM 8.2 mg/dL (8.5-10.1); CREATININE 1.1 mg/dL (0.55-1.3); POTASSIUM 3.9 mmol/L (3.5-5.1)
[2019-11-19] MEDS: MELATONIN 5 MG TABLETS PO SCH (22:47)
[2019-11-19] MEDS: THIAMINE HCL 100 MG TABLET (FP) PO SCH (22:47)
[2019-11-20] MEDS: hydrOXYzine PAMOATE 25 MG CAPSULE (FP) PO SCH ×5 (06:34→22:24)
[2019-11-20] MEDS: chlordiazePOXIDE HCL 25 MG CAPSULE PO SCH ×4 (06:34→22:24)
--- NOTE | 2019-11-20 09:15 | PN ---
S CIWA - CIWA Score Nausea/Vomitin-No Nausea/No Vomiting Muscle Tremors: 2 Anxiety: 3 Agitation: 0-Normal Activity Paroxysmal Sweats: 3 Orientation: 0-Oriented Tacttile Disturbances: 0-None Auditory Disturbances: 0-None Visual Disturbances: 0-None Headache: 2-Mild CIWA-Ar Total Score: 10 S Progress Note (SOAP) Subjective: c/o sweats, headache, anxiety, and shakes. Objective: 11/20/19 09:14 Vital Signs 11/20/19 11/20/19 05:09 09:02 Temperature 96.3 F L 98.0 F Pulse Rate 75 69 Respiratory 18 18 Rate Blood Pressure 117/77 101/67 O2 Sat by Pulse 99 Oximetry (%) Laboratory Last Values WBC 6.6 K/mm3 (4.0-10.0) 11/19/19 09:30 RBC 4.28 M/mm3 (4.00-5.60) 11/19/19 09:30 Hgb 13.7 GM/dL (11.7-16.9) 11/19/19 09:30 Hct 40.8 % (35.4-49) 11/19/19 09:30 MCV 95.2 fl (80-96) 11/19/19 09:30 MCH 32.0 pg (25.7-33.7) 11/19/19 09:30 MCHC 33.6 g/dl (32.0-35.9) 11/19/19 09:30 RDW 15.3 % (11.9-15.9) 11/19/19 09:30 Plt Count 183 K/MM3 (134-434) 11/19/19 09:30 MPV 8.5 fl (7.5-11.1) D 11/19/19 09:30 Sodium 139 mmol/L (136-145) 11/19/19 09:30 Potassium 3.9 mmol/L (3.5-5.1) 11/19/19 09:30 Chloride 105 mmol/L (98-107) 11/19/19 09:30 Carbon Dioxide 28 mmol/L (21-32) 11/19/19 09:30 Anion Gap 7 MMOL/L (8-16) L 11/19/19 09:30 BUN 14.2 mg/dL (7-18) 11/19/19 09:30 Creatinine 1.1 mg/dL (0.55-1.3) 11/19/19 09:30 Est GFR (CKD-EPI)AfAm 87.74 11/19/19 09:30 Est GFR (CKD-EPI)NonAf 75.70 11/19/19 09:30 Random Glucose 99 mg/dL (74-106) 11/19/19 09:30 Calcium 8.2 mg/dL (8.5-10.1) L 11/19/19 09:30 Total Bilirubin 0.2 mg/dL (0.2-1) 11/19/19 09:30 AST 43 U/L (15-37) H 11/19/19 09:30 ALT 49 U/L (13-61) 11/19/19 09:30 Alkaline Phosphatase 80 U/L (45-117) 11/19/19 09:30 Total Protein 8.0 g/dl (6.4-8.2) 11/19/19 09:30 Albumin 3.8 g/dl (3.4-5.0) 11/19/19 09:30 Syphilis Serology Non-reactive (NONREACTIVE) 11/19/19 09:30 HIV Ag/Ab Combo Qual Negative (NEGATIVE) 11/19/19 09:30 Labs noted. 11/20/19 09:27 Assessment: 11/20/19 09:15 AOX3, in no acute respiratory distress. Full ROM, ambulating in the unit. Withdrawal symptoms. Plan: continue detox.
[2019-11-20] MEDS: NICOTINE 7 MG/24 HOURS TOPICAL PATCH TD SCH (10:43)
[2019-11-20] MEDS: PRENATAL VITAMINS W/ FOLIC ACID TABLET (FP) PO SCH (10:43)
[2019-11-20] MEDS ORDERED: MASKS NR ONE (16:38)
[2019-11-20] MEDS: THIAMINE HCL 100 MG TABLET (FP) PO SCH (22:24)
[2019-11-20] MEDS: MELATONIN 5 MG TABLETS PO SCH (22:24)
[2019-11-21] MEDS: chlordiazePOXIDE HCL 25 MG CAPSULE PO SCH ×2 (05:30→10:47)
[2019-11-21] MEDS: hydrOXYzine PAMOATE 25 MG CAPSULE (FP) PO SCH ×3 (05:30→14:39)
--- NOTE | 2019-11-21 09:33 | PN ---
[facility] CIWA - CIWA Score Nausea/Vomitin-No Nausea/No Vomiting Muscle Tremors: 2 Anxiety: 2 Agitation: 1-Slight > Activity Paroxysmal Sweats: 1-Minimal Palms Moist Orientation: 0-Oriented Tacttile Disturbances: 0-None Auditory Disturbances: 1-Very Mild Visual Disturbances: 2-Mild Sensitivity Headache: 0-None Present CIWA-Ar Total Score: 9 S Progress Note (SOAP) Subjective: 54 years old male was admitted on 11/19/19 for alcohol withdrawal sx management treating with librium detox regiment ate breakfast no trouble chewing swallowing tolerated food well past history of schizoaffective disorder treated with risperdal reports not taking psychotropic medication for " awhile" denies visual hallucination mild noise not threatening Objective: 11/21/19 09:36 Vital Signs - 24 hr 11/20/19 11/20/19 11/20/19 12:59 17:01 20:48 Temperature 97.7 F 97.7 F 97.6 F Pulse Rate 73 69 66 Respiratory 20 16 18 Rate Blood Pressure 121/84 141/95 132/82 O2 Sat by Pulse 97 96 Oximetry (%) 11/21/19 11/21/19 05:24 08:57 Temperature 97.8 F 97.9 F Pulse Rate 67 79 Respiratory 18 18 Rate Blood Pressure 112/72 129/90 O2 Sat by Pulse 98 Oximetry (%) Laboratory Tests 11/19/19 11/19/19 11/19/19 09:30 09:30 09:30 WBC 6.6 RBC 4.28 Hgb 13.7 Hct 40.8 MCV 95.2 MCH 32.0 MCHC 33.6 RDW 15.3 Plt Count 183 MPV 8.5 D Sodium 139 Potassium 3.9 Chloride 105 Carbon Dioxide 28 Anion Gap 7 L BUN 14.2 Creatinine 1.1 Est GFR (CKD-EPI)AfAm 87.74 Est GFR (CKD-EPI)NonAf 75.70 Random Glucose 99 Calcium 8.2 L Total Bilirubin 0.2 AST 43 H ALT 49 Alkaline Phosphatase 80 Total Protein 8.0 Albumin 3.8 Syphilis Serology Non-reactive COVID-19 (WHIT) HIV Ag/Ab Combo Qual 11/19/19 11/19/19 09:30 14:00 WBC RBC Hgb Hct MCV MCH MCHC RDW Plt Count MPV Sodium Potassium Chloride Carbon Dioxide Anion Gap BUN Creatinine Est GFR (CKD-EPI)AfAm Est GFR (CKD-EPI)NonAf Random Glucose Calcium Total Bilirubin AST ALT Alkaline Phosphatase Total Protein Albumin Syphilis Serology COVID-19 (WHIT) Not detected HIV Ag/Ab Combo Qual Negative lab noted Assessment: 11/21/19 09:36 alcohol withdrawal Plan: librium regiment
[2019-11-21] MEDS: PRENATAL VITAMINS W/ FOLIC ACID TABLET (FP) PO SCH (10:47)
[2019-11-21] MEDS: NICOTINE 7 MG/24 HOURS TOPICAL PATCH TD SCH (10:47)
[2019-11-21 13:02] VITALS: BP 125/85; PULSE 78; TEMP 97.5
--- NOTE | 2019-11-21 16:52 | PN ---
[facility] Progress Note Note: patient did not want to continue and complete treatment,all attempts to convince patient to stay with no avail, high risk of relapsing explained and understood,patient signed release against medical advice, the risks of leaving including seizure,permanent disability including informed ad understood
--- NOTE | 2019-11-21 17:00 | DS ---
[facility] Detox Discharge Summary Admission Date: 11/19/19 Discharge Date: 11/21/19 - History Present History: Alcohol Dependence, Cocaine Dependence Additional Comments: patient signed release against medical service,please see the progress note alert,oriented x 3 lung clear on auscultation bilaterally abdomen soft,no pain extremity no swelling ambulation on the unit no suicidal,no homicidal ideation signed release against medical advise,the risks of seizure,permanent damage including informed ,patient understood Pertinent Past History: hypertension history of schizoaffective disorder - Physical Exam Results Vital Signs: Vital Signs Temperature 97.5 F L 11/21/19 12:31 Pulse Rate 78 11/21/19 12:31 Respiratory Rate 18 11/21/19 12:31 Blood Pressure 125/85 11/21/19 12:31 O2 Sat by Pulse Oximetry (%) 99 11/21/19 12:31 Pertinent Admission Physical Exam Findings: withdrawal signs and symptom Vital Signs Temperature 97.5 F L 11/21/19 12:31 Pulse Rate 78 11/21/19 12:31 Respiratory Rate 18 11/21/19 12:31 Blood Pressure 125/85 11/21/19 12:31 O2 Sat by Pulse Oximetry (%) 99 11/21/19 12:31 Laboratory Last Values WBC 6.6 K/mm3 (4.0-10.0) 11/19/19 09:30 RBC 4.28 M/mm3 (4.00-5.60) 11/19/19 09:30 Hgb 13.7 GM/dL (11.7-16.9) 11/19/19 09:30 Hct 40.8 % (35.4-49) 11/19/19 09:30 MCV 95.2 fl (80-96) 11/19/19 09:30 MCH 32.0 pg (25.7-33.7) 11/19/19 09:30 MCHC 33.6 g/dl (32.0-35.9) 11/19/19 09:30 RDW 15.3 % (11.9-15.9) 11/19/19 09:30 Plt Count 183 K/MM3 (134-434) 11/19/19 09:30 MPV 8.5 fl (7.5-11.1) D 11/19/19 09:30 Sodium 139 mmol/L (136-145) 11/19/19 09:30 Potassium 3.9 mmol/L (3.5-5.1) 11/19/19 09:30 Chloride 105 mmol/L (98-107) 11/19/19 09:30 Carbon Dioxide 28 mmol/L (21-32) 11/19/19 09:30 Anion Gap 7 MMOL/L (8-16) L 11/19/19 09:30 BUN 14.2 mg/dL (7-18) 11/19/19 09:30 Creatinine 1.1 mg/dL (0.55-1.3) 11/19/19 09:30 Est GFR (CKD-EPI)AfAm 87.74 11/19/19 09:30 Est GFR (CKD-EPI)NonAf 75.70 11/19/19 09:30 Random Glucose 99 mg/dL (74-106) 11/19/19 09:30 Calcium 8.2 mg/dL (8.5-10.1) L 11/19/19 09:30 Total Bilirubin 0.2 mg/dL (0.2-1) 11/19/19 09:30 AST 43 U/L (15-37) H 11/19/19 09:30 ALT 49 U/L (13-61) 11/19/19 09:30 Alkaline Phosphatase 80 U/L (45-117) 11/19/19 09:30 Total Protein 8.0 g/dl (6.4-8.2) 11/19/19 09:30 Albumin 3.8 g/dl (3.4-5.0) 11/19/19 09:30 Syphilis Serology Non-reactive (NONREACTIVE) 11/19/19 09:30 COVID-19 (WHIT) Not detected (Not Detected) 11/19/19 14:00 HIV Ag/Ab Combo Qual Negative (NEGATIVE) 11/19/19 09:30 - Medication Discharge Medications: Ambulatory Orders NK [No Known Home Medication] 12/21/17 - Diagnosis (1) Alcohol dependence with uncomplicated withdrawal Current Visit: Yes Status: Acute (2) Cocaine dependence Current Visit: Yes Status: Chronic Qualifiers: Substance use status: uncomplicated Qualified Code(s): F14.20 - Cocaine dependence, uncomplicated (3) History of schizoaffective disorder Current Visit: Yes Status: Chronic (4) Nicotine dependence Current Visit: Yes Status: Chronic Qualifiers: Nicotine product type: cigarettes Substance use status: in withdrawal Qualified Code(s): F17.213 - Nicotine dependence, cigarettes, with withdrawal - AMA Did Patient Leave Against Medical Advice: Yes
[2019-11-22] MEDS ORDERED: chlordiazePOXIDE HCL 10 MG CAPSULE PO PRN
[2019-11-22] MEDS ORDERED: chlordiazePOXIDE HCL 10 MG CAPSULE PO SCH (05:00)
[2019-11-23] MEDS ORDERED: chlordiazePOXIDE HCL 10 MG CAPSULE PO SCH (05:00)
[2019-11-24] MEDS ORDERED: chlordiazePOXIDE HCL 10 MG CAPSULE PO ONE (05:00)
== END 2019-11-21 16:57 | disposition left against medical advice (07) | DRG 770 ==
LOC: YASAS 08:15 → Y3N 09:15
PROVIDERS: ADMIT Allergy & Immunology; ATTEND Allergy & Immunology
PROC: HZ2ZZZZ Detoxification Services for Substance Abuse Treatment (ICD-10-PCS; principal; 2019-11-19)
DX: F10.230 Alcohol dependence with withdrawal, uncomplicated (principal); F14.20 Cocaine dependence, uncomplicated; F17.213 Nicotine dependence, cigarettes, with withdrawal; F25.9 Schizoaffective disorder, unspecified; F19.24 Other psychoactive substance dependence with psychoactive substance-induced mood disorder; I10 Essential (primary) hypertension; G47.00 Insomnia, unspecified; Z98.890 Other specified postprocedural states; Z91.19 Patient's noncompliance with other medical treatment and regimen; Z56.0 Unemployment, unspecified; Z59.0 Homelessness
CPT/HCPCS: 36415; 80053; 85027; 86780; 87389; U0003

== ENCOUNTER 2020-10-22 08:31 | Inpatient (IN) | payer OTHER ==
[2020-10-22 09:00] VITALS: BMI 31.3
[2020-10-22] MEDS ORDERED: ONDANSETRON *ODT* 4 MG TABLET SL PRN (10:45)
[2020-10-22] MEDS ORDERED: MAGNESIUM HYDROX 2400MG/30ML ORAL SUSPENSION 30 ML CUP PO PRN (10:45)
[2020-10-22] MEDS ORDERED: MENTHOL/PHENOL 1 EACH UD MM PRN (10:45)
[2020-10-22] MEDS ORDERED: MAGNESIUM CITRATE 300 ML BOTTLE PO PRN (10:45)
[2020-10-22] MEDS ORDERED: IBUPROFEN 400 MG TABLET (FP) PO PRN (10:45)
[2020-10-22] MEDS ORDERED: BISMUTH SUBSALICYLATE 524 MG/30 ML PO PRN (10:45)
[2020-10-22] MEDS ORDERED: diazePAM 5 MG TABLET PO PRN (10:45)
[2020-10-22] MEDS ORDERED: NICOTINE 10 MG CARTRIDGE (INHALER) IH PRN (10:45)
[2020-10-22] MEDS ORDERED: ACETAMINOPHEN 325 MG TABLET (FP) PO PRN ×2 (10:45)
[2020-10-22] MEDS ORDERED: MAG HYDROX/AL HYDROX/SIMETH 30 ML UNIT-DOSE CUP PO PRN (10:45)
[2020-10-22] MEDS ORDERED: METHOCARBAMOL 500 MG TABLET PO PRN (10:45)
[2020-10-22] MEDS: diazePAM 5 MG TABLET PO SCH ×3 (11:59→23:20)
[2020-10-22] MEDS: hydrOXYzine PAMOATE 25 MG CAPSULE (FP) PO SCH ×3 (13:57→23:20)
[2020-10-22] MEDS: MELATONIN 5 MG TABLETS PO SCH (23:19)
[2020-10-22] MEDS: THIAMINE HCL 100 MG TABLET (FP) PO SCH (23:20)
[2020-10-23] MEDS: hydrOXYzine PAMOATE 25 MG CAPSULE (FP) PO SCH ×4 (05:42→18:45)
[2020-10-23] MEDS: diazePAM 5 MG TABLET PO SCH (05:42)
[2020-10-23] MEDS ORDERED: LORazepam 1 MG TABLET PO PRN (09:32)
[2020-10-23] MEDS: PRENATAL VITAMINS W/ FOLIC ACID TABLET (FP) PO SCH (10:11)
[2020-10-23] MEDS: LORazepam 2 MG TABLET PO SCH ×2 (10:11→18:45)
[2020-10-23 11:06] LABS: HEMATOCRIT 37.6 % (35.4-49); HEMOGLOBIN 12.7 GM/dL (11.7-16.9); MCH 30.7 pg (25.7-33.7); MCHC 33.8 g/dl (32.0-35.9); MEAN CELL VOLUME 90.7 fl (80-96); MEAN PLT VOLUME 8.8 fl (7.5-11.1); PLATELET COUNT 155 10^3/uL (134-434); RBC 4.15 M/mm3 (4.00-5.60); RDW 15.4 % (11.9-15.9); WHITE BLOOD COUNT 5.8 K/mm3 (4.0-10.0)
[2020-10-23 11:17] LABS: ALBUMIN 3.4 g/dl (3.4-5.0); BLOOD UREA NITROGEN 9.5 mg/dL (7-18)
[2020-10-23 11:20] LABS: CREATININE 0.9 mg/dL (0.55-1.3)
[2020-10-23 11:21] LABS: BILIRUBIN,TOTAL 0.5 mg/dL (0.2-1)
[2020-10-24] MEDS: hydrOXYzine PAMOATE 25 MG CAPSULE (FP) PO SCH ×6 (00:01→22:52)
[2020-10-24] MEDS: MELATONIN 5 MG TABLETS PO SCH ×2 (00:01→22:51)
[2020-10-24] MEDS: THIAMINE HCL 100 MG TABLET (FP) PO SCH ×2 (00:01→22:52)
[2020-10-24] MEDS: LORazepam 2 MG TABLET PO SCH ×5 (00:02→22:51)
[2020-10-24] MEDS ORDERED: diazePAM 5 MG TABLET PO SCH (06:00)
[2020-10-24] MEDS: PRENATAL VITAMINS W/ FOLIC ACID TABLET (FP) PO SCH (10:44)
[2020-10-25] MEDS: hydrOXYzine PAMOATE 25 MG CAPSULE (FP) PO SCH ×5 (05:52→22:33)
[2020-10-25] MEDS: LORazepam 1 MG TABLET PO SCH ×4 (05:52→22:33)
[2020-10-25] MEDS ORDERED: diazePAM 5 MG TABLET PO SCH (06:00)
[2020-10-25] MEDS: PRENATAL VITAMINS W/ FOLIC ACID TABLET (FP) PO SCH (10:01)
[2020-10-25] MEDS: THIAMINE HCL 100 MG TABLET (FP) PO SCH (22:33)
[2020-10-25] MEDS: MELATONIN 5 MG TABLETS PO SCH (22:35)
[2020-10-26] MEDS ORDERED: LORazepam 0.5 MG TABLET PO PRN
[2020-10-26] MEDS ORDERED: diazePAM 5 MG TABLET PO ONE (06:00)
[2020-10-26] MEDS: LORazepam 0.5 MG TABLET PO SCH ×4 (06:53→23:36)
[2020-10-26] MEDS: hydrOXYzine PAMOATE 25 MG CAPSULE (FP) PO SCH ×5 (06:54→23:36)
[2020-10-26] MEDS: PRENATAL VITAMINS W/ FOLIC ACID TABLET (FP) PO SCH (10:18)
[2020-10-26] MEDS: THIAMINE HCL 100 MG TABLET (FP) PO SCH (23:36)
[2020-10-26] MEDS: MELATONIN 5 MG TABLETS PO SCH (23:36)
[2020-10-27] MEDS ORDERED: LORazepam 0.5 MG TABLET PO ONE (05:00)
[2020-10-27] MEDS: hydrOXYzine PAMOATE 25 MG CAPSULE (FP) PO SCH ×2 (06:08→09:31)
[2020-10-27] MEDS: PRENATAL VITAMINS W/ FOLIC ACID TABLET (FP) PO SCH (09:31)
[2020-10-27 09:41] VITALS: BP 130/86; PULSE 96; TEMP 96.6
== END 2020-10-27 09:55 | disposition other institution (70) | DRG 774 ==
LOC: YASAS 08:31 → Y3N 10:02
PROVIDERS: ADMIT Allergy & Immunology; ATTEND Allergy & Immunology
PROC: HZ2ZZZZ Detoxification Services for Substance Abuse Treatment (ICD-10-PCS; principal; 2020-10-22)
DX: F10.230 Alcohol dependence with withdrawal, uncomplicated (principal); F14.20 Cocaine dependence, uncomplicated; F17.213 Nicotine dependence, cigarettes, with withdrawal; Z56.0 Unemployment, unspecified; Z59.0 Homelessness
CPT/HCPCS: 36415; 80053; 85027; 86780; C9803; U0003; U0005

== ENCOUNTER 2020-11-25 09:01 | Inpatient (IN) | payer OTHER ==
[2020-11-25 14:20] VITALS: BMI 31.6
[2020-11-25] MEDS ORDERED: guaiFENesin 200 MG/10 ML 10 ML UNIT-DOSE CUPS PO PRN (16:26)
[2020-11-25] MEDS ORDERED: P-EPHED 60MG/TRIPROLIDI 2.5MG TABLET PO PRN (16:26)
[2020-11-25] MEDS ORDERED: LOPERAMIDE HCL 2 MG CAPSULE PO PRN (16:26)
[2020-11-25] MEDS ORDERED: MAGNESIUM CITRATE 300 ML BOTTLE PO PRN (16:26)
[2020-11-25] MEDS ORDERED: MAG HYDROX/AL HYDROX/SIMETH 30 ML UNIT-DOSE CUP PO PRN (16:26)
[2020-11-25] MEDS ORDERED: MAGNESIUM HYDROX 2400MG/30ML ORAL SUSPENSION 30 ML CUP PO PRN (16:26)
[2020-11-25] MEDS ORDERED: TUBERCULIN PPD 5 TU/0.1ML VIAL ID ONE (17:42)
[2020-11-25] MEDS: hydrOXYzine PAMOATE 25 MG CAPSULE (FP) PO SCH ×2 (17:42→21:50)
[2020-11-25] MEDS: THIAMINE HCL 100 MG TABLET (FP) PO SCH (21:50)
[2020-11-25] MEDS: MELATONIN 5 MG TABLETS PO SCH (21:50)
[2020-11-26] MEDS: hydrOXYzine PAMOATE 25 MG CAPSULE (FP) PO SCH ×5 (06:55→21:51)
[2020-11-26] MEDS: NICOTINE 7 MG/24 HOURS TOPICAL PATCH TD SCH (10:04)
[2020-11-26] MEDS: PRENATAL VITAMINS W/ FOLIC ACID TABLET (FP) PO SCH (10:04)
[2020-11-26 20:54] LABS: URINE APPEARANCE CLEAR; URINE BILIRUBIN NEGATIVE (NEGATIVE); URINE COLOR DK YELLOW; URINE GLUCOSE (UA) NEGATIVE (NEGATIVE); URINE KETONE TRACE (NEGATIVE); URINE LEUK ESTERASE NEGATIVE (NEGATIVE); URINE NITRITE NEGATIVE (NEGATIVE); URINE PROTEIN NEGATIVE (NEGATIVE)
[2020-11-26] MEDS: THIAMINE HCL 100 MG TABLET (FP) PO SCH (21:51)
[2020-11-26] MEDS: MELATONIN 5 MG TABLETS PO SCH (21:51)
[2020-11-27] MEDS: hydrOXYzine PAMOATE 25 MG CAPSULE (FP) PO SCH ×2 (06:16→11:23)
[2020-11-27] MEDS: PRENATAL VITAMINS W/ FOLIC ACID TABLET (FP) PO SCH (10:23)
[2020-11-27] MEDS: NICOTINE 7 MG/24 HOURS TOPICAL PATCH TD SCH (10:23)
[2020-11-27] MEDS: THIAMINE HCL 100 MG TABLET (FP) PO SCH (22:46)
[2020-11-28 10:35] LABS: CALCIUM 8.2 mg/dL (8.5-10.1)
[2020-11-28] MEDS: PRENATAL VITAMINS W/ FOLIC ACID TABLET (FP) PO SCH (10:35)
[2020-11-28] MEDS: NICOTINE 7 MG/24 HOURS TOPICAL PATCH TD SCH (10:35)
[2020-11-28 10:36] LABS: ALBUMIN 3.2 g/dl (3.4-5.0); BLOOD UREA NITROGEN 9.9 mg/dL (7-18); HEMATOCRIT 39.2 % (35.4-49); HEMOGLOBIN 13.5 GM/dL (11.7-16.9); MCH 31.4 pg (25.7-33.7); MCHC 34.5 g/dl (32.0-35.9); MEAN CELL VOLUME 91.2 fl (80-96); MEAN PLT VOLUME 8.8 fl (7.5-11.1); PLATELET COUNT 192 10^3/uL (134-434); RDW 15.8 % (11.9-15.9); WHITE BLOOD COUNT 5.7 K/mm3 (4.0-10.0)
[2020-11-28 10:39] LABS: CREATININE 0.9 mg/dL (0.55-1.3)
[2020-11-28 10:40] LABS: BILIRUBIN,TOTAL 0.3 mg/dL (0.2-1)
[2020-11-28 10:41] LABS: TOT PROT 7.2 g/dl (6.4-8.2)
[2020-11-28 11:43] LABS: SYPHILIS W/ RPR CONF NON-REACTIVE (NONREACTIVE)
[2020-11-28] MEDS: THIAMINE HCL 100 MG TABLET (FP) PO SCH (22:27)
[2020-11-29] MEDS: PRENATAL VITAMINS W/ FOLIC ACID TABLET (FP) PO SCH (10:53)
[2020-11-29] MEDS: NICOTINE 7 MG/24 HOURS TOPICAL PATCH TD SCH (10:53)
[2020-11-29 14:07] LABS: SARS-CoV-2 NAA Not Detected (Not Detected)
[2020-11-29] MEDS: ACETAMINOPHEN 325 MG TABLET (FP) PO PRN (17:35)
[2020-11-29] MEDS: THIAMINE HCL 100 MG TABLET (FP) PO SCH (21:03)
[2020-11-30] MEDS: NICOTINE 7 MG/24 HOURS TOPICAL PATCH TD SCH (10:25)
[2020-11-30] MEDS: PRENATAL VITAMINS W/ FOLIC ACID TABLET (FP) PO SCH ×2 (10:25→10:57)
[2020-11-30] MEDS: NICOTINE 10 MG CARTRIDGE (INHALER) IH PRN (16:47)
[2020-11-30] MEDS: THIAMINE HCL 100 MG TABLET (FP) PO SCH (21:14)
[2020-11-30] MEDS: IBUPROFEN 400 MG TABLET (FP) PO PRN (21:15)
[2020-12-01] MEDS: PRENATAL VITAMINS W/ FOLIC ACID TABLET (FP) PO SCH (10:05)
[2020-12-01] MEDS: NICOTINE 7 MG/24 HOURS TOPICAL PATCH TD SCH (10:05)
[2020-12-01] MEDS: NICOTINE 10 MG CARTRIDGE (INHALER) IH PRN ×2 (10:07→21:10)
[2020-12-01] MEDS: THIAMINE HCL 100 MG TABLET (FP) PO SCH (21:10)
[2020-12-02] MEDS: NICOTINE 10 MG CARTRIDGE (INHALER) IH PRN ×3 (07:25→21:38)
[2020-12-02] MEDS: NICOTINE 7 MG/24 HOURS TOPICAL PATCH TD SCH (10:10)
[2020-12-02] MEDS: PRENATAL VITAMINS W/ FOLIC ACID TABLET (FP) PO SCH (10:10)
[2020-12-02] MEDS: THIAMINE HCL 100 MG TABLET (FP) PO SCH (21:38)
[2020-12-02] MEDS ORDERED: MELATONIN 5 MG TABLETS PO SCH (22:00)
[2020-12-03] MEDS ORDERED: PT OWN MED DRAWER 7, Y5N ONE (09:17)
[2020-12-03] MEDS: NICOTINE 7 MG/24 HOURS TOPICAL PATCH TD SCH (09:37)
[2020-12-03] MEDS: NICOTINE 10 MG CARTRIDGE (INHALER) IH PRN ×2 (09:37→21:12)
[2020-12-03] MEDS: PRENATAL VITAMINS W/ FOLIC ACID TABLET (FP) PO SCH (09:37)
[2020-12-03] MEDS: THIAMINE HCL 100 MG TABLET (FP) PO SCH (21:57)
[2020-12-03] MEDS: SUVOREXANT 10 MG TABLET PO PRN (22:20)
[2020-12-04] MEDS: PRENATAL VITAMINS W/ FOLIC ACID TABLET (FP) PO SCH (10:27)
[2020-12-04] MEDS: NICOTINE 10 MG CARTRIDGE (INHALER) IH PRN ×2 (10:28→15:37)
[2020-12-04] MEDS: NICOTINE 7 MG/24 HOURS TOPICAL PATCH TD SCH (10:28)
[2020-12-04] MEDS ORDERED: BENZOCAINE 20 % GEL TUBE MM PRN (14:33)
[2020-12-04] MEDS: THIAMINE HCL 100 MG TABLET (FP) PO SCH (21:25)
[2020-12-04] MEDS: SUVOREXANT 10 MG TABLET PO PRN (21:25)
[2020-12-04] MEDS: valACYclovir HCL 500 MG TABLET (FP) PO SCH (21:26)
[2020-12-05] MEDS: PRENATAL VITAMINS W/ FOLIC ACID TABLET (FP) PO SCH (09:57)
[2020-12-05] MEDS: valACYclovir HCL 500 MG TABLET (FP) PO SCH (09:58)
[2020-12-05] MEDS: NICOTINE 7 MG/24 HOURS TOPICAL PATCH TD SCH (09:58)
[2020-12-05] MEDS: NICOTINE 10 MG CARTRIDGE (INHALER) IH PRN (09:59)
[2020-12-05] MEDS: THIAMINE HCL 100 MG TABLET (FP) PO SCH (21:10)
[2020-12-05] MEDS: SUVOREXANT 10 MG TABLET PO PRN (21:11)
[2020-12-06] MEDS: NICOTINE 7 MG/24 HOURS TOPICAL PATCH TD SCH (10:28)
[2020-12-06] MEDS: PRENATAL VITAMINS W/ FOLIC ACID TABLET (FP) PO SCH (10:28)
[2020-12-06] MEDS: IBUPROFEN 400 MG TABLET (FP) PO PRN ×2 (12:30→19:01)
[2020-12-06] MEDS: NICOTINE 10 MG CARTRIDGE (INHALER) IH PRN (17:18)
[2020-12-06] MEDS: THIAMINE HCL 100 MG TABLET (FP) PO SCH (21:20)
[2020-12-06] MEDS: SUVOREXANT 10 MG TABLET PO PRN (21:21)
[2020-12-06] MEDS: valACYclovir HCL 500 MG TABLET (FP) PO SCH (21:21)
[2020-12-07] MEDS: NICOTINE 7 MG/24 HOURS TOPICAL PATCH TD SCH (09:57)
[2020-12-07] MEDS: valACYclovir HCL 500 MG TABLET (FP) PO SCH ×2 (09:57→21:09)
[2020-12-07] MEDS: PRENATAL VITAMINS W/ FOLIC ACID TABLET (FP) PO SCH (09:57)
[2020-12-07] MEDS: THIAMINE HCL 100 MG TABLET (FP) PO SCH (21:08)
[2020-12-07] MEDS: SUVOREXANT 10 MG TABLET PO PRN (21:10)
[2020-12-08] MEDS: PRENATAL VITAMINS W/ FOLIC ACID TABLET (FP) PO SCH (10:01)
[2020-12-08] MEDS: NICOTINE 7 MG/24 HOURS TOPICAL PATCH TD SCH (10:01)
[2020-12-08] MEDS: valACYclovir HCL 500 MG TABLET (FP) PO SCH ×2 (10:01→21:28)
[2020-12-08] MEDS: ACETAMINOPHEN 325 MG TABLET (FP) PO PRN (19:27)
[2020-12-08] MEDS: SUVOREXANT 10 MG TABLET PO PRN (21:27)
[2020-12-08] MEDS: THIAMINE HCL 100 MG TABLET (FP) PO SCH (21:28)
[2020-12-09] MEDS: valACYclovir HCL 500 MG TABLET (FP) PO SCH ×2 (09:55→21:13)
[2020-12-09] MEDS: NICOTINE 7 MG/24 HOURS TOPICAL PATCH TD SCH (09:55)
[2020-12-09] MEDS: PRENATAL VITAMINS W/ FOLIC ACID TABLET (FP) PO SCH (09:55)
[2020-12-09] MEDS: THIAMINE HCL 100 MG TABLET (FP) PO SCH (21:13)
[2020-12-09] MEDS: SUVOREXANT 10 MG TABLET PO PRN (21:14)
[2020-12-10] MEDS: valACYclovir HCL 500 MG TABLET (FP) PO SCH ×2 (09:46→21:45)
[2020-12-10] MEDS: PRENATAL VITAMINS W/ FOLIC ACID TABLET (FP) PO SCH (09:46)
[2020-12-10] MEDS: NICOTINE 7 MG/24 HOURS TOPICAL PATCH TD SCH (09:46)
[2020-12-10] MEDS: THIAMINE HCL 100 MG TABLET (FP) PO SCH (21:45)
[2020-12-10] MEDS: SUVOREXANT 10 MG TABLET PO PRN (21:46)
[2020-12-11] MEDS: valACYclovir HCL 500 MG TABLET (FP) PO SCH ×2 (09:56→21:11)
[2020-12-11] MEDS: PRENATAL VITAMINS W/ FOLIC ACID TABLET (FP) PO SCH (09:56)
[2020-12-11] MEDS: NICOTINE 7 MG/24 HOURS TOPICAL PATCH TD SCH (09:56)
[2020-12-11] MEDS: IBUPROFEN 400 MG TABLET (FP) PO PRN (19:40)
[2020-12-11] MEDS: THIAMINE HCL 100 MG TABLET (FP) PO SCH (21:11)
[2020-12-11] MEDS: SUVOREXANT 10 MG TABLET PO PRN (21:12)
[2020-12-12] MEDS: valACYclovir HCL 500 MG TABLET (FP) PO SCH ×2 (10:32→21:02)
[2020-12-12] MEDS: NICOTINE 7 MG/24 HOURS TOPICAL PATCH TD SCH (10:32)
[2020-12-12] MEDS: PRENATAL VITAMINS W/ FOLIC ACID TABLET (FP) PO SCH (10:32)
[2020-12-12] MEDS: AMOXICILLIN 500 MG CAPSULE (FP) PO SCH ×2 (12:39→21:02)
[2020-12-12] MEDS: IBUPROFEN 400 MG TABLET (FP) PO PRN (13:40)
[2020-12-12] MEDS: SUVOREXANT 10 MG TABLET PO PRN (21:01)
[2020-12-12] MEDS: THIAMINE HCL 100 MG TABLET (FP) PO SCH (21:02)
[2020-12-13] MEDS: IBUPROFEN 400 MG TABLET (FP) PO PRN ×3 (07:23→21:50)
[2020-12-13] MEDS: PRENATAL VITAMINS W/ FOLIC ACID TABLET (FP) PO SCH (10:50)
[2020-12-13] MEDS: valACYclovir HCL 500 MG TABLET (FP) PO SCH ×2 (10:50→21:48)
[2020-12-13] MEDS: AMOXICILLIN 500 MG CAPSULE (FP) PO SCH ×2 (10:50→21:48)
[2020-12-13] MEDS: NICOTINE 7 MG/24 HOURS TOPICAL PATCH TD SCH (10:51)
[2020-12-13] MEDS: THIAMINE HCL 100 MG TABLET (FP) PO SCH (21:48)
[2020-12-13] MEDS: SUVOREXANT 10 MG TABLET PO PRN (21:49)
[2020-12-14] MEDS: IBUPROFEN 400 MG TABLET (FP) PO PRN ×2 (07:42→18:37)
[2020-12-14] MEDS: valACYclovir HCL 500 MG TABLET (FP) PO SCH ×2 (09:43→21:05)
[2020-12-14] MEDS: AMOXICILLIN 500 MG CAPSULE (FP) PO SCH ×2 (09:44→21:05)
[2020-12-14] MEDS: PRENATAL VITAMINS W/ FOLIC ACID TABLET (FP) PO SCH (09:44)
[2020-12-14] MEDS: NICOTINE 7 MG/24 HOURS TOPICAL PATCH TD SCH (09:44)
[2020-12-14] MEDS: BACITRACIN 0.9 GM PACKET TP SCH ×2 (12:36→21:05)
[2020-12-14] MEDS: THIAMINE HCL 100 MG TABLET (FP) PO SCH (21:06)
[2020-12-14] MEDS: SUVOREXANT 10 MG TABLET PO PRN (21:06)
[2020-12-15] MEDS: IBUPROFEN 400 MG TABLET (FP) PO PRN (06:23)
[2020-12-15 06:51] VITALS: BP 142/89; PULSE 76; TEMP 97.5
== END 2020-12-15 08:17 | disposition home or self-care (01) | DRG 772 ==
LOC: YASAS 09:01 → Y3W 16:30
PROVIDERS: ADMIT Allergy & Immunology; ATTEND Allergy & Immunology
PROC: HZ42ZZZ Group Counseling for Substance Abuse Treatment, Cognitive-Behavioral (ICD-10-PCS; principal; 2020-11-25)
DX: F10.20 Alcohol dependence, uncomplicated (principal); F14.20 Cocaine dependence, uncomplicated; F17.210 Nicotine dependence, cigarettes, uncomplicated; F31.9 Bipolar disorder, unspecified; F19.282 Other psychoactive substance dependence with psychoactive substance-induced sleep disorder; I10 Essential (primary) hypertension; A69.0 Necrotizing ulcerative stomatitis; L03.021 Acute lymphangitis of right finger; Z86.59 Personal history of other mental and behavioral disorders; Z56.0 Unemployment, unspecified; Z59.0 Homelessness
CPT/HCPCS: 36415; 80053; 81003; 82947; 85027; 86780; 86803; C9803; U0003; U0005

== ENCOUNTER 2021-03-15 14:26 | Inpatient (IN) | payer OTHER ==
[2021-03-15] MEDS ORDERED: ONDANSETRON *ODT* 4 MG TABLET SL PRN (18:52)
[2021-03-15] MEDS ORDERED: MAGNESIUM HYDROX 2400MG/30ML ORAL SUSPENSION 30 ML CUP PO PRN (18:52)
[2021-03-15] MEDS ORDERED: IBUPROFEN 400 MG TABLET (FP) PO PRN (18:52)
[2021-03-15] MEDS ORDERED: MAGNESIUM CITRATE 300 ML BOTTLE PO PRN (18:52)
[2021-03-15] MEDS ORDERED: METHOCARBAMOL 500 MG TABLET PO PRN (18:52)
[2021-03-15] MEDS ORDERED: ACETAMINOPHEN 325 MG TABLET (FP) PO PRN ×2 (18:52)
[2021-03-15] MEDS ORDERED: guaiFENesin 200 MG/10 ML 10 ML UNIT-DOSE CUPS PO PRN (18:52)
[2021-03-15] MEDS ORDERED: MENTHOL/PHENOL 1 EACH UD MM PRN (18:52)
[2021-03-15] MEDS ORDERED: MAG HYDROX/AL HYDROX/SIMETH 30 ML UNIT-DOSE CUP PO PRN (18:52)
[2021-03-15] MEDS ORDERED: BISMUTH SUBSALICYLATE 524 MG/30 ML PO PRN (18:52)
[2021-03-15] MEDS ORDERED: NICOTINE 10 MG CARTRIDGE (INHALER) IH PRN (18:52)
[2021-03-15] MEDS ORDERED: P-EPHED 60MG/TRIPROLIDI 2.5MG TABLET PO PRN (18:52)
[2021-03-15] MEDS ORDERED: DICYCLOMINE HCL 10 MG CAPSULE PO PRN (18:52)
[2021-03-15 21:32] VITALS: BMI 33.5
[2021-03-15] MEDS ORDERED: MELATONIN 5 MG TABLETS PO SCH (22:00)
[2021-03-15] MEDS: THIAMINE HCL 100 MG TABLET (FP) PO SCH (22:55)
[2021-03-16] MEDS: hydrOXYzine PAMOATE 25 MG CAPSULE (FP) PO PRN ×2 (07:13→21:27)
[2021-03-16] MEDS: PRENATAL VITAMINS W/ FOLIC ACID TABLET (FP) PO SCH (10:47)
[2021-03-16] MEDS: NICOTINE 14 MG/24 HOURS TOPICAL PATCH TD SCH (10:48)
[2021-03-16 12:44] LABS: CALCIUM 8.4 mg/dL (8.5-10.1)
[2021-03-16 12:45] LABS: ALBUMIN 3.4 g/dl (3.4-5.0); BLOOD UREA NITROGEN 14.1 mg/dL (7-18)
[2021-03-16 12:48] LABS: CREATININE 1.1 mg/dL (0.55-1.3)
[2021-03-16 12:50] LABS: BILIRUBIN,TOTAL 0.5 mg/dL (0.2-1); TOT PROT 7.7 g/dl (6.4-8.2)
[2021-03-16 13:16] LABS: HEMATOCRIT 39.9 % (35.4-49); HEMOGLOBIN 13.4 GM/dL (11.7-16.9); MCH 29.8 pg (25.7-33.7); MCHC 33.6 g/dl (32.0-35.9); MEAN CELL VOLUME 88.5 fl (80-96); MEAN PLT VOLUME 8.1 fl (7.5-11.1); PLATELET COUNT 190 10^3/uL (134-434); RBC 4.51 M/mm3 (4.00-5.60); RDW 14.6 % (11.9-15.9); WHITE BLOOD COUNT 7.7 K/mm3 (4.0-10.0)
[2021-03-16] MEDS: THIAMINE HCL 100 MG TABLET (FP) PO SCH (21:26)
[2021-03-16] MEDS ORDERED: SUVOREXANT 10 MG TABLET PO PRN (22:00)
[2021-03-17] MEDS: NICOTINE 14 MG/24 HOURS TOPICAL PATCH TD SCH (13:33)
[2021-03-17] MEDS: PRENATAL VITAMINS W/ FOLIC ACID TABLET (FP) PO SCH (14:46)
[2021-03-17 19:31] VITALS: BP 156/90; PULSE 88; TEMP 97.1
== END 2021-03-17 18:40 | disposition home or self-care (01) | DRG 775 ==
LOC: YASAS 14:26 → Y6N 03-16 02:45
PROVIDERS: ADMIT Allergy & Immunology; ATTEND Allergy & Immunology
PROC: HZ2ZZZZ Detoxification Services for Substance Abuse Treatment (ICD-10-PCS; principal; 2021-03-16)
DX: F10.230 Alcohol dependence with withdrawal, uncomplicated (principal); F12.20 Cannabis dependence, uncomplicated; F17.210 Nicotine dependence, cigarettes, uncomplicated; F25.9 Schizoaffective disorder, unspecified; F31.9 Bipolar disorder, unspecified; F43.10 Post-traumatic stress disorder, unspecified; F19.24 Other psychoactive substance dependence with psychoactive substance-induced mood disorder; F19.282 Other psychoactive substance dependence with psychoactive substance-induced sleep disorder; I10 Essential (primary) hypertension; M16.11 Unilateral primary osteoarthritis, right hip; Z91.14 Patient's other noncompliance with medication regimen; Z56.0 Unemployment, unspecified; Z59.00 Homelessness unspecified
CPT/HCPCS: 36415; 80053; 85027; 86780; 93005; 93010; C9803; U0003; U0005

== ENCOUNTER 2021-11-23 15:03 | Inpatient (IN) | payer OTHER ==
[2021-11-23 15:35] VITALS: BMI 33.3
[2021-11-23] MEDS ORDERED: chlordiazePOXIDE HCL 25 MG CAPSULE PO PRN (16:45)
[2021-11-23] MEDS ORDERED: BISMUTH SUBSALICYLATE 524 MG/30 ML PO PRN (16:45)
[2021-11-23] MEDS ORDERED: BENZOCAINE/MENTHOL (CHLORASEPTIC ) LOZENGE MM PRN (16:45)
[2021-11-23] MEDS ORDERED: DICYCLOMINE HCL 10 MG CAPSULE PO PRN (16:45)
[2021-11-23] MEDS ORDERED: NICOTINE 10 MG CARTRIDGE (INHALER) IH PRN (16:45)
[2021-11-23] MEDS ORDERED: LOPERAMIDE HCL 2 MG CAPSULE PO PRN (16:45)
[2021-11-23] MEDS ORDERED: MAG HYDROX/AL HYDROX/SIMETH 30 ML UNIT-DOSE CUP PO PRN (16:45)
[2021-11-23] MEDS ORDERED: ACETAMINOPHEN 325 MG TABLET (FP) PO PRN ×2 (16:45)
[2021-11-23] MEDS ORDERED: ONDANSETRON *ODT* 4 MG TABLET SL PRN (16:45)
[2021-11-23] MEDS ORDERED: IBUPROFEN 600 MG TABLET (FP) PO PRN (16:45)
[2021-11-23] MEDS ORDERED: IBUPROFEN 400 MG TABLET (FP) PO PRN (16:45)
[2021-11-23] MEDS ORDERED: MAGNESIUM HYDROX 2400MG/30ML ORAL SUSPENSION 30 ML CUP PO PRN (16:45)
[2021-11-23] MEDS ORDERED: MAGNESIUM CITRATE 300 ML BOTTLE PO PRN (16:45)
[2021-11-23] MEDS: hydrOXYzine PAMOATE 25 MG CAPSULE (FP) PO SCH (17:37)
[2021-11-23] MEDS: chlordiazePOXIDE HCL 25 MG CAPSULE PO SCH (17:38)
[2021-11-24] MEDS: LISINOPRIL 10 MG TABLET PO SCH ×3 (00:31→23:26)
[2021-11-24] MEDS: THIAMINE HCL 100 MG TABLET (FP) PO SCH ×2 (00:31→23:25)
[2021-11-24] MEDS: MELATONIN 5 MG TABLETS PO SCH ×2 (00:31→23:26)
[2021-11-24] MEDS: hydrOXYzine PAMOATE 25 MG CAPSULE (FP) PO SCH ×6 (00:31→23:25)
[2021-11-24] MEDS: chlordiazePOXIDE HCL 25 MG CAPSULE PO SCH ×5 (00:31→23:25)
[2021-11-24] MEDS: PRENATAL VITAMINS W/ FOLIC ACID TABLET (FP) PO SCH (11:09)
[2021-11-24] MEDS: METHOCARBAMOL 500 MG TABLET PO PRN ×2 (11:09→18:01)
[2021-11-24 15:34] LABS: CALCIUM 8.8 mg/dL (8.5-10.1); HEMATOCRIT 40.5 % (35.4-49); HEMOGLOBIN 13.3 GM/dL (11.7-16.9); MCH 31.6 pg (25.7-33.7); MCHC 32.9 g/dl (32.0-35.9); PLATELET COUNT 199 10^3/uL (134-434); RBC 4.22 M/mm3 (4.00-5.60); RDW 13.6 % (11.9-15.9); WHITE BLOOD COUNT 5.7 K/mm3 (4.0-10.0)
[2021-11-24 15:35] LABS: ALBUMIN 3.3 g/dl (3.4-5.0); BLOOD UREA NITROGEN 13.8 mg/dL (7-18)
[2021-11-24 15:37] LABS: CREATININE 1.1 mg/dL (0.55-1.3)
[2021-11-24 15:39] LABS: BILIRUBIN,TOTAL 0.3 mg/dL (0.2-1)
[2021-11-25] MEDS: hydrOXYzine PAMOATE 25 MG CAPSULE (FP) PO SCH ×4 (07:04→19:09)
[2021-11-25] MEDS: chlordiazePOXIDE HCL 25 MG CAPSULE PO SCH ×4 (07:04→22:44)
[2021-11-25] MEDS: LISINOPRIL 10 MG TABLET PO SCH (10:47)
[2021-11-25] MEDS: PRENATAL VITAMINS W/ FOLIC ACID TABLET (FP) PO SCH (10:47)
[2021-11-25] MEDS: METHOCARBAMOL 500 MG TABLET PO PRN (10:47)
[2021-11-26] MEDS ORDERED: chlordiazePOXIDE HCL 10 MG CAPSULE PO PRN
[2021-11-26] MEDS: MELATONIN 5 MG TABLETS PO SCH (00:45)
[2021-11-26] MEDS: LISINOPRIL 10 MG TABLET PO SCH ×2 (00:46→12:41)
[2021-11-26] MEDS: hydrOXYzine PAMOATE 25 MG CAPSULE (FP) PO SCH ×5 (00:46→17:34)
[2021-11-26] MEDS: THIAMINE HCL 100 MG TABLET (FP) PO SCH (00:46)
[2021-11-26] MEDS: chlordiazePOXIDE HCL 10 MG CAPSULE PO SCH ×3 (05:29→17:34)
[2021-11-26 08:44] VITALS: RESP 18
[2021-11-26] MEDS: PRENATAL VITAMINS W/ FOLIC ACID TABLET (FP) PO SCH (11:02)
[2021-11-26 17:12] VITALS: BP 119/62; PULSE 80; TEMP 98.9
[2021-11-27] MEDS ORDERED: chlordiazePOXIDE HCL 10 MG CAPSULE PO SCH (05:00)
[2021-11-28] MEDS ORDERED: chlordiazePOXIDE HCL 10 MG CAPSULE PO ONE (05:00)
== END 2021-11-26 20:45 | disposition left against medical advice (07) | DRG 770 ==
LOC: YASAS 15:03 → Y6N 16:48
PROVIDERS: ADMIT Allergy & Immunology; ATTEND Surgery
PROC: HZ2ZZZZ Detoxification Services for Substance Abuse Treatment (ICD-10-PCS; principal; 2021-11-23)
DX: F10.230 Alcohol dependence with withdrawal, uncomplicated (principal); F14.20 Cocaine dependence, uncomplicated; F17.210 Nicotine dependence, cigarettes, uncomplicated; I10 Essential (primary) hypertension; M16.11 Unilateral primary osteoarthritis, right hip; R73.09 Other abnormal glucose; Z91.14 Patient's other noncompliance with medication regimen
CPT/HCPCS: 36415; 80053; 85027; 86780; 87811; C9803-CS; U0003; U0005

== ENCOUNTER 2022-02-17 11:03 | Inpatient (IN) | payer OTHER ==
[2022-02-17] MEDS ORDERED: BISMUTH SUBSALICYLATE 524 MG/30 ML PO PRN (11:53)
[2022-02-17] MEDS ORDERED: METHOCARBAMOL 500 MG TABLET PO PRN (11:53)
[2022-02-17] MEDS ORDERED: MAG HYDROX/AL HYDROX/SIMETH 30 ML UNIT-DOSE CUP PO PRN (11:53)
[2022-02-17] MEDS ORDERED: MAGNESIUM HYDROX 2400MG/30ML ORAL SUSPENSION 30 ML CUP PO PRN (11:53)
[2022-02-17] MEDS ORDERED: ONDANSETRON *ODT* 4 MG TABLET SL PRN (11:53)
[2022-02-17] MEDS ORDERED: DICYCLOMINE HCL 10 MG CAPSULE PO PRN (11:53)
[2022-02-17] MEDS ORDERED: BENZOCAINE/MENTHOL (CHLORASEPTIC ) LOZENGE MM PRN (11:53)
[2022-02-17] MEDS ORDERED: POLYETHYLENE GLYCOL (HEALTHYLAX) 3350 17 GM PACKET PO PRN (11:53)
[2022-02-17] MEDS ORDERED: IBUPROFEN 400 MG TABLET (FP) PO PRN (11:53)
[2022-02-17] MEDS ORDERED: NALOXONE HCL (KLOXXADO) 8 MG SPRAY NS PRN (11:53)
[2022-02-17] MEDS ORDERED: IBUPROFEN 600 MG TABLET (FP) PO PRN (11:53)
[2022-02-17] MEDS ORDERED: LOPERAMIDE HCL 2 MG CAPSULE PO PRN (11:53)
[2022-02-17] MEDS ORDERED: ACETAMINOPHEN 325 MG TABLET (FP) PO PRN ×2 (11:53)
[2022-02-17] MEDS ORDERED: hydrOXYzine PAMOATE 25 MG CAPSULE (FP) PO PRN (11:53)
[2022-02-17] MEDS ORDERED: NICOTINE 10 MG CARTRIDGE (INHALER) IH PRN (11:53)
[2022-02-17 12:15] VITALS: BMI 31.3
[2022-02-17] MEDS: THIAMINE HCL 100 MG TABLET (FP) PO SCH (22:05)
[2022-02-17] MEDS: MELATONIN 5 MG TABLETS PO SCH (22:05)
[2022-02-18] MEDS ORDERED: chlordiazePOXIDE HCL 25 MG CAPSULE PO PRN (09:49)
[2022-02-18] MEDS: LISINOPRIL 10 MG TABLET PO SCH (10:19)
[2022-02-18] MEDS: chlordiazePOXIDE HCL 25 MG CAPSULE PO SCH ×3 (10:19→22:58)
[2022-02-18] MEDS: PRENATAL VITAMINS W/ FOLIC ACID TABLET (FP) PO SCH (10:21)
[2022-02-18 10:53] LABS: HEMOGLOBIN 13.5 GM/dL (11.7-16.9); MCH 31.3 pg (25.7-33.7); MCHC 32.8 g/dl (32.0-35.9); MEAN CELL VOLUME 95.3 fl (80-96); PLATELET COUNT 196 10^3/uL (134-434); WHITE BLOOD COUNT 5.9 K/mm3 (4.0-10.0)
[2022-02-18 11:01] LABS: ALBUMIN 3.2 g/dl (3.4-5.0); CREATININE 0.9 mg/dL (0.55-1.3)
[2022-02-18 11:02] LABS: BILIRUBIN,TOTAL 0.3 mg/dL (0.2-1)
[2022-02-18 11:03] LABS: CALCIUM 8.7 mg/dL (8.5-10.1); TOT PROT 6.6 g/dl (6.4-8.2)
[2022-02-18 13:03] VITALS: RESP 18
[2022-02-18] MEDS: THIAMINE HCL 100 MG TABLET (FP) PO SCH (22:58)
[2022-02-18] MEDS: MELATONIN 5 MG TABLETS PO SCH (22:58)
[2022-02-19] MEDS: chlordiazePOXIDE HCL 25 MG CAPSULE PO SCH ×2 (06:35→10:11)
[2022-02-19 09:16] VITALS: BP 131/74; PULSE 75; TEMP 97.3
[2022-02-19] MEDS: LISINOPRIL 10 MG TABLET PO SCH (10:11)
[2022-02-19] MEDS: PRENATAL VITAMINS W/ FOLIC ACID TABLET (FP) PO SCH (10:11)
[2022-02-20] MEDS ORDERED: chlordiazePOXIDE HCL 25 MG CAPSULE PO SCH (05:00)
[2022-02-21] MEDS ORDERED: chlordiazePOXIDE HCL 10 MG CAPSULE PO PRN
[2022-02-21] MEDS ORDERED: chlordiazePOXIDE HCL 10 MG CAPSULE PO SCH (05:00)
[2022-02-22] MEDS ORDERED: chlordiazePOXIDE HCL 10 MG CAPSULE PO SCH (05:00)
[2022-02-23] MEDS ORDERED: chlordiazePOXIDE HCL 10 MG CAPSULE PO ONE (05:00)
== END 2022-02-19 10:08 | disposition left against medical advice (07) | DRG 770 ==
LOC: YASAS 11:03 → Y3N 11:58
PROVIDERS: ADMIT Allergy & Immunology; ATTEND Surgery
PROC: HZ2ZZZZ Detoxification Services for Substance Abuse Treatment (ICD-10-PCS; principal; 2022-02-17)
DX: F10.230 Alcohol dependence with withdrawal, uncomplicated (principal); F14.20 Cocaine dependence, uncomplicated; F12.10 Cannabis abuse, uncomplicated; F17.210 Nicotine dependence, cigarettes, uncomplicated; I10 Essential (primary) hypertension; M16.11 Unilateral primary osteoarthritis, right hip
CPT/HCPCS: 36415; 80053; 85027; 86780; C9803-CS; U0003; U0005

== ENCOUNTER 2022-04-13 10:35 | Inpatient (IN) | payer OTHER ==
[2022-04-13] MEDS ORDERED: POLYETHYLENE GLYCOL (HEALTHYLAX) 3350 17 GM PACKET PO PRN (15:10)
[2022-04-13] MEDS ORDERED: NICOTINE 10 MG CARTRIDGE (INHALER) IH PRN (15:10)
[2022-04-13] MEDS ORDERED: ACETAMINOPHEN 325 MG TABLET (FP) PO PRN ×2 (15:10)
[2022-04-13] MEDS ORDERED: IBUPROFEN 400 MG TABLET (FP) PO PRN (15:10)
[2022-04-13] MEDS ORDERED: ONDANSETRON *ODT* 4 MG TABLET SL PRN (15:10)
[2022-04-13] MEDS ORDERED: MAG HYDROX/AL HYDROX/SIMETH 30 ML UNIT-DOSE CUP PO PRN (15:10)
[2022-04-13] MEDS ORDERED: BISMUTH SUBSALICYLATE 524 MG/30 ML PO PRN (15:10)
[2022-04-13] MEDS ORDERED: METHOCARBAMOL 500 MG TABLET PO PRN (15:10)
[2022-04-13] MEDS ORDERED: MAGNESIUM HYDROX 2400MG/30ML ORAL SUSPENSION 30 ML CUP PO PRN (15:10)
[2022-04-13] MEDS ORDERED: IBUPROFEN 600 MG TABLET (FP) PO PRN (15:10)
[2022-04-13] MEDS ORDERED: NALOXONE HCL (KLOXXADO) 8 MG SPRAY NS PRN (15:10)
[2022-04-13] MEDS ORDERED: LOPERAMIDE HCL 2 MG CAPSULE PO PRN (15:10)
[2022-04-13] MEDS ORDERED: DICYCLOMINE HCL 10 MG CAPSULE PO PRN (15:10)
[2022-04-13] MEDS ORDERED: BENZOCAINE/MENTHOL (CHLORASEPTIC ) LOZENGE MM PRN (15:10)
[2022-04-13] MEDS: MELATONIN 5 MG TABLETS PO SCH (22:32)
[2022-04-13] MEDS: THIAMINE HCL 100 MG TABLET (FP) PO SCH (22:32)
[2022-04-14] MEDS ORDERED: LISINOPRIL 5 MG TABLET PO SCH (10:00)
[2022-04-14] MEDS: PRENATAL VITAMINS W/ FOLIC ACID TABLET (FP) PO SCH (10:32)
[2022-04-14] MEDS ORDERED: chlordiazePOXIDE HCL 25 MG CAPSULE PO PRN (11:51)
[2022-04-14 11:59] LABS: HEMATOCRIT 39.6 % (35.4-49); HEMOGLOBIN 13.1 GM/dL (11.7-16.9); MCH 31.8 pg (25.7-33.7); MEAN CELL VOLUME 96.2 fl (80-96); MEAN PLT VOLUME 8.4 fl (7.5-11.1); PLATELET COUNT 209 10^3/uL (134-434); RBC 4.12 M/mm3 (4.00-5.60); RDW 14.1 % (11.9-15.9); WHITE BLOOD COUNT 7.3 K/mm3 (4.0-10.0)
[2022-04-14 12:13] LABS: CALCIUM 8.4 mg/dL (8.5-10.1)
[2022-04-14 12:14] LABS: ALBUMIN 3.1 g/dl (3.4-5.0); BLOOD UREA NITROGEN 11.9 mg/dL (7-18)
[2022-04-14 12:19] LABS: BILIRUBIN,TOTAL 0.3 mg/dL (0.2-1); TOT PROT 6.3 g/dl (6.4-8.2)
[2022-04-14] MEDS ORDERED: LISINOPRIL 5 MG TABLET PO ONE (14:00)
[2022-04-14] MEDS: chlordiazePOXIDE HCL 25 MG CAPSULE PO SCH ×2 (17:29→22:16)
[2022-04-14] MEDS: MELATONIN 5 MG TABLETS PO SCH (22:16)
[2022-04-14] MEDS: THIAMINE HCL 100 MG TABLET (FP) PO SCH (22:16)
[2022-04-14] MEDS: LISINOPRIL 10 MG TABLET PO SCH (22:16)
[2022-04-15] MEDS: chlordiazePOXIDE HCL 25 MG CAPSULE PO SCH ×4 (05:43→22:15)
[2022-04-15] MEDS: PRENATAL VITAMINS W/ FOLIC ACID TABLET (FP) PO SCH (10:47)
[2022-04-15] MEDS: LISINOPRIL 10 MG TABLET PO SCH ×2 (10:48→22:19)
[2022-04-15] MEDS: MELATONIN 5 MG TABLETS PO SCH (22:14)
[2022-04-15] MEDS: THIAMINE HCL 100 MG TABLET (FP) PO SCH (22:14)
[2022-04-16] MEDS ORDERED: chlordiazePOXIDE HCL 10 MG CAPSULE PO PRN
[2022-04-16] MEDS: chlordiazePOXIDE HCL 10 MG CAPSULE PO SCH ×4 (06:03→22:18)
[2022-04-16] MEDS: PRENATAL VITAMINS W/ FOLIC ACID TABLET (FP) PO SCH (10:12)
[2022-04-16] MEDS: LISINOPRIL 10 MG TABLET PO SCH ×2 (10:12→22:18)
[2022-04-16] MEDS: BICTEGRAV/EMTRICIT/TENOFOV (BIKTARVY) 50-200-25 MG TABLET PO SCH (11:42)
[2022-04-16] MEDS ORDERED: traZODone HCL 50 MG TABLET (FP) PO ONE (22:02)
[2022-04-16] MEDS: MELATONIN 5 MG TABLETS PO SCH (22:17)
[2022-04-16] MEDS: THIAMINE HCL 100 MG TABLET (FP) PO SCH (22:18)
[2022-04-16] MEDS: hydrOXYzine PAMOATE 25 MG CAPSULE (FP) PO PRN (22:18)
[2022-04-17] MEDS: chlordiazePOXIDE HCL 10 MG CAPSULE PO SCH ×2 (06:00→18:05)
[2022-04-17] MEDS: BICTEGRAV/EMTRICIT/TENOFOV (BIKTARVY) 50-200-25 MG TABLET PO SCH (09:23)
[2022-04-17] MEDS: PRENATAL VITAMINS W/ FOLIC ACID TABLET (FP) PO SCH (10:27)
[2022-04-17] MEDS: LISINOPRIL 10 MG TABLET PO SCH ×2 (10:28→22:12)
[2022-04-17 17:31] VITALS: RESP 18
[2022-04-17] MEDS: MELATONIN 5 MG TABLETS PO SCH (22:11)
[2022-04-17] MEDS: THIAMINE HCL 100 MG TABLET (FP) PO SCH (22:12)
[2022-04-18] MEDS ORDERED: chlordiazePOXIDE HCL 10 MG CAPSULE PO ONE (05:00)
[2022-04-18] MEDS: BICTEGRAV/EMTRICIT/TENOFOV (BIKTARVY) 50-200-25 MG TABLET PO SCH (07:53)
[2022-04-18 09:04] VITALS: BP 132/73; PULSE 89; TEMP 96.9
[2022-04-18] MEDS: PRENATAL VITAMINS W/ FOLIC ACID TABLET (FP) PO SCH (10:59)
[2022-04-18] MEDS: hydrOXYzine PAMOATE 25 MG CAPSULE (FP) PO PRN (11:00)
[2022-04-18] MEDS: LISINOPRIL 10 MG TABLET PO SCH (11:00)
== END 2022-04-18 12:35 | disposition other institution (70) | DRG 774 ==
LOC: YASAS 10:35 → Y6N 15:54
PROVIDERS: ADMIT Allergy & Immunology; ATTEND Family Medicine
PROC: HZ2ZZZZ Detoxification Services for Substance Abuse Treatment (ICD-10-PCS; principal; 2022-04-13)
DX: F10.230 Alcohol dependence with withdrawal, uncomplicated (principal); F14.20 Cocaine dependence, uncomplicated; F17.210 Nicotine dependence, cigarettes, uncomplicated; G47.00 Insomnia, unspecified; B20 Human immunodeficiency virus [HIV] disease; Z79.899 Other long term (current) drug therapy; I10 Essential (primary) hypertension; M16.11 Unilateral primary osteoarthritis, right hip
CPT/HCPCS: 36415; 80053; 85027; 86780; C9803-CS; Q0162; U0003; U0005

== ENCOUNTER 2022-12-31 11:32 | Inpatient (IN) | payer OTHER ==
[2022-12-31 12:19] VITALS: BMI 29.4
[2022-12-31] MEDS ORDERED: MAGNESIUM HYDROX 2400MG/30ML ORAL SUSPENSION 30 ML CUP PO PRN (14:08)
[2022-12-31] MEDS ORDERED: POLYETHYLENE GLYCOL (HEALTHYLAX) 3350 17 GM PACKET PO PRN (14:08)
[2022-12-31] MEDS ORDERED: NALOXONE HCL (KLOXXADO) 8 MG SPRAY NS PRN (14:08)
[2022-12-31] MEDS ORDERED: IBUPROFEN 400 MG TABLET (FP) PO PRN (14:08)
[2022-12-31] MEDS ORDERED: NALOXONE HCL 0.4 MG/ML VIAL IM PRN (14:08)
[2022-12-31] MEDS ORDERED: LOPERAMIDE HCL 2 MG CAPSULE PO PRN (14:08)
[2022-12-31] MEDS ORDERED: ONDANSETRON *ODT* 4 MG TABLET SL PRN (14:08)
[2022-12-31] MEDS ORDERED: BISMUTH SUBSALICYLATE 262 MG/15 ML BTL PO PRN (14:08)
[2022-12-31] MEDS ORDERED: BENZOCAINE/MENTHOL (CHLORASEPTIC ) LOZENGE MM PRN (14:08)
[2022-12-31] MEDS ORDERED: MAG HYDROX/AL HYDROX/SIMETH 30 ML UNIT-DOSE CUP PO PRN (14:08)
[2022-12-31] MEDS: NICOTINE 21 MG/24 HOURS TOPICAL PATCH TD SCH (15:00)
[2022-12-31] MEDS ORDERED: PRENATAL VITAMINS W/ FOLIC ACID TABLET (FP) PO ONE (15:01)
[2022-12-31] MEDS: PRENATAL VITAMINS W/ FOLIC ACID TABLET (FP) PO SCH (15:03)
[2022-12-31] MEDS: BENZONATATE 200 MG CAPSULE PO PRN (19:41)
[2022-12-31] MEDS ORDERED: MELATONIN 5 MG TABLETS PO SCH (22:00)
[2022-12-31] MEDS: THIAMINE HCL 100 MG TABLET (FP) PO SCH (22:22)
[2022-12-31] MEDS: hydrOXYzine PAMOATE 25 MG CAPSULE (FP) PO PRN (22:23)
[2022-12-31] MEDS: ACETAMINOPHEN 325 MG TABLET (FP) PO PRN (23:49)
[2022-12-31] MEDS: METHOCARBAMOL 500 MG TABLET PO PRN (23:49)
[2023-01-01] MEDS ORDERED: chlordiazePOXIDE HCL 25 MG CAPSULE PO PRN (09:47)
[2023-01-01] MEDS: BICTEGRAV/EMTRICIT/TENOFOV (BIKTARVY) 50-200-25 MG TABLET PO SCH (10:41)
[2023-01-01] MEDS: NICOTINE 21 MG/24 HOURS TOPICAL PATCH TD SCH (10:42)
[2023-01-01] MEDS: PRENATAL VITAMINS W/ FOLIC ACID TABLET (FP) PO SCH (10:42)
[2023-01-01] MEDS: chlordiazePOXIDE HCL 25 MG CAPSULE PO SCH ×3 (10:42→22:26)
[2023-01-01 10:46] LABS: HEMATOCRIT 37.9 % (35.4-49); MCHC 34.4 g/dl (32.0-35.9); MEAN CELL VOLUME 96.1 fl (80-96); MEAN PLT VOLUME 8.6 fl (7.5-11.1); PLATELET COUNT 203 10^3/uL (134-434); RBC 3.94 M/mm3 (4.00-5.60); RDW 14.2 % (11.9-15.9); WHITE BLOOD COUNT 4.8 K/mm3 (4.0-10.0)
[2023-01-01 10:47] LABS: POTASSIUM 3.9 mmol/L (3.5-5.1)
[2023-01-01 10:48] LABS: ALBUMIN 3.4 g/dl (3.4-5.0); CALCIUM 8.6 mg/dL (8.5-10.1)
[2023-01-01 10:50] LABS: BLOOD UREA NITROGEN 11.9 mg/dL (7-18)
[2023-01-01 10:54] LABS: BILIRUBIN,TOTAL 0.2 mg/dL (0.2-1); TOT PROT 6.9 g/dl (6.4-8.2)
[2023-01-01] MEDS: METHOCARBAMOL 500 MG TABLET PO PRN (13:06)
[2023-01-01] MEDS: guaiFENesin 600 MG TABLET.ER (FP) PO PRN ×2 (13:06→20:32)
[2023-01-01] MEDS: DICYCLOMINE HCL 10 MG CAPSULE PO PRN (17:13)
[2023-01-01] MEDS: ACETAMINOPHEN 325 MG TABLET (FP) PO PRN (20:30)
[2023-01-01] MEDS: THIAMINE HCL 100 MG TABLET (FP) PO SCH (22:25)
[2023-01-01] MEDS: BENZONATATE 200 MG CAPSULE PO PRN (22:28)
[2023-01-01] MEDS: SUVOREXANT 10 MG TABLET PO PRN (22:28)
[2023-01-01] MEDS: hydrOXYzine PAMOATE 25 MG CAPSULE (FP) PO PRN (22:29)
[2023-01-02] MEDS: METHOCARBAMOL 500 MG TABLET PO PRN (02:31)
[2023-01-02] MEDS: hydrOXYzine PAMOATE 25 MG CAPSULE (FP) PO PRN (02:31)
[2023-01-02] MEDS: chlordiazePOXIDE HCL 25 MG CAPSULE PO SCH ×4 (05:20→22:41)
[2023-01-02] MEDS: BICTEGRAV/EMTRICIT/TENOFOV (BIKTARVY) 50-200-25 MG TABLET PO SCH (10:18)
[2023-01-02] MEDS: LACTULOSE 20 GM/30 ML UDC (FOR ORAL USE ONLY) PO SCH ×4 (10:18→22:42)
[2023-01-02] MEDS: PRENATAL VITAMINS W/ FOLIC ACID TABLET (FP) PO SCH (10:18)
[2023-01-02] MEDS: NICOTINE 21 MG/24 HOURS TOPICAL PATCH TD SCH (10:18)
[2023-01-02] MEDS: IBUPROFEN 600 MG TABLET (FP) PO PRN ×2 (10:21→22:40)
[2023-01-02] MEDS: THIAMINE HCL 100 MG TABLET (FP) PO SCH (22:40)
[2023-01-02] MEDS: SUVOREXANT 10 MG TABLET PO PRN (22:42)
[2023-01-03] MEDS: chlordiazePOXIDE HCL 10 MG CAPSULE PO SCH ×4 (05:07→22:51)
[2023-01-03] MEDS: NICOTINE 21 MG/24 HOURS TOPICAL PATCH TD SCH (10:44)
[2023-01-03] MEDS: LACTULOSE 20 GM/30 ML UDC (FOR ORAL USE ONLY) PO SCH ×4 (10:44→22:52)
[2023-01-03] MEDS: BICTEGRAV/EMTRICIT/TENOFOV (BIKTARVY) 50-200-25 MG TABLET PO SCH (10:44)
[2023-01-03] MEDS: PRENATAL VITAMINS W/ FOLIC ACID TABLET (FP) PO SCH (10:44)
[2023-01-03] MEDS: SUVOREXANT 10 MG TABLET PO PRN (22:52)
[2023-01-03] MEDS: THIAMINE HCL 100 MG TABLET (FP) PO SCH (22:52)
[2023-01-03] MEDS: METHOCARBAMOL 500 MG TABLET PO PRN (22:52)
[2023-01-03] MEDS: hydrOXYzine PAMOATE 25 MG CAPSULE (FP) PO PRN (22:52)
[2023-01-04] MEDS: DICYCLOMINE HCL 10 MG CAPSULE PO PRN (01:31)
[2023-01-04] MEDS: chlordiazePOXIDE HCL 10 MG CAPSULE PO SCH ×2 (05:16→17:10)
[2023-01-04] MEDS: PRENATAL VITAMINS W/ FOLIC ACID TABLET (FP) PO SCH (10:32)
[2023-01-04] MEDS: BICTEGRAV/EMTRICIT/TENOFOV (BIKTARVY) 50-200-25 MG TABLET PO SCH (10:32)
[2023-01-04] MEDS: LACTULOSE 20 GM/30 ML UDC (FOR ORAL USE ONLY) PO SCH ×4 (10:32→23:09)
[2023-01-04] MEDS: NICOTINE 21 MG/24 HOURS TOPICAL PATCH TD SCH (10:33)
[2023-01-04] MEDS ORDERED: SUVOREXANT 10 MG TABLET PO PRN (22:00)
[2023-01-04] MEDS: THIAMINE HCL 100 MG TABLET (FP) PO SCH (23:09)
[2023-01-04] MEDS: hydrOXYzine PAMOATE 25 MG CAPSULE (FP) PO PRN (23:35)
[2023-01-04] MEDS: METHOCARBAMOL 500 MG TABLET PO PRN (23:35)
[2023-01-05] MEDS ORDERED: chlordiazePOXIDE HCL 10 MG CAPSULE PO ONE (05:00)
[2023-01-05 09:06] VITALS: BP 139/72; PULSE 52; RESP 16; TEMP 97.5
[2023-01-05] MEDS: hydrOXYzine PAMOATE 25 MG CAPSULE (FP) PO PRN (09:41)
[2023-01-05] MEDS: BICTEGRAV/EMTRICIT/TENOFOV (BIKTARVY) 50-200-25 MG TABLET PO SCH (09:41)
[2023-01-05] MEDS: METHOCARBAMOL 500 MG TABLET PO PRN (09:41)
[2023-01-05] MEDS: LACTULOSE 20 GM/30 ML UDC (FOR ORAL USE ONLY) PO SCH (09:41)
[2023-01-05] MEDS: PRENATAL VITAMINS W/ FOLIC ACID TABLET (FP) PO SCH (09:41)
[2023-01-05] MEDS: NICOTINE 21 MG/24 HOURS TOPICAL PATCH TD SCH (09:42)
== END 2023-01-05 10:15 | disposition home or self-care (01) | DRG 774 ==
LOC: YASAS 11:32 → Y6N 15:00
PROVIDERS: ADMIT Allergy & Immunology; ATTEND Surgery
PROC: HZ2ZZZZ Detoxification Services for Substance Abuse Treatment (ICD-10-PCS; principal; 2022-12-31)
DX: F10.230 Alcohol dependence with withdrawal, uncomplicated (principal); F14.10 Cocaine abuse, uncomplicated; F12.10 Cannabis abuse, uncomplicated; F17.210 Nicotine dependence, cigarettes, uncomplicated; F31.9 Bipolar disorder, unspecified; F19.282 Other psychoactive substance dependence with psychoactive substance-induced sleep disorder; F19.24 Other psychoactive substance dependence with psychoactive substance-induced mood disorder; Z21 Asymptomatic human immunodeficiency virus [HIV] infection status; I10 Essential (primary) hypertension; E78.2 Mixed hyperlipidemia; E11.9 Type 2 diabetes mellitus without complications; M16.11 Unilateral primary osteoarthritis, right hip
CPT/HCPCS: 26055; 36415; 71045-TC-FY; 80053; 82140; 85027; 86780; 87635; 87804; 87811; 93005; 93010

== ENCOUNTER 2023-03-08 11:29 | Inpatient (IN) | payer OTHER ==
[2023-03-08 12:23] VITALS: BMI 31.9
[2023-03-08] MEDS ORDERED: BISMUTH SUBSALICYLATE 524 MG/30 ML PO PRN (16:46)
[2023-03-08] MEDS ORDERED: IBUPROFEN 400 MG TABLET (FP) PO PRN (16:46)
[2023-03-08] MEDS ORDERED: BENZONATATE 200 MG CAPSULE PO PRN (16:46)
[2023-03-08] MEDS ORDERED: chlordiazePOXIDE HCL 25 MG CAPSULE PO PRN (16:46)
[2023-03-08] MEDS ORDERED: DICYCLOMINE HCL 10 MG CAPSULE PO PRN (16:46)
[2023-03-08] MEDS ORDERED: hydrOXYzine PAMOATE 25 MG CAPSULE (FP) PO PRN (16:46)
[2023-03-08] MEDS ORDERED: MAG HYDROX/AL HYDROX/SIMETH 30 ML UNIT-DOSE CUP PO PRN (16:46)
[2023-03-08] MEDS ORDERED: BENZOCAINE/MENTHOL (CHLORASEPTIC ) LOZENGE MM PRN (16:46)
[2023-03-08] MEDS ORDERED: POLYETHYLENE GLYCOL (HEALTHYLAX) 3350 17 GM PACKET PO PRN (16:46)
[2023-03-08] MEDS ORDERED: ONDANSETRON *ODT* 4 MG TABLET SL PRN (16:46)
[2023-03-08] MEDS ORDERED: NALOXONE HCL 0.4 MG/ML VIAL IM PRN (16:46)
[2023-03-08] MEDS ORDERED: NALOXONE HCL (KLOXXADO) 8 MG SPRAY NS PRN (16:46)
[2023-03-08] MEDS ORDERED: LOPERAMIDE HCL 2 MG CAPSULE PO PRN (16:46)
[2023-03-08] MEDS ORDERED: METHOCARBAMOL 500 MG TABLET PO PRN (16:46)
[2023-03-08] MEDS ORDERED: MAGNESIUM HYDROX 2400MG/30ML ORAL SUSPENSION 30 ML CUP PO PRN (16:46)
[2023-03-08] MEDS ORDERED: chlordiazePOXIDE HCL 25 MG CAPSULE ONE (17:02)
[2023-03-08] MEDS: chlordiazePOXIDE HCL 25 MG CAPSULE PO SCH ×2 (17:07→22:36)
[2023-03-08] MEDS: guaiFENesin 600 MG TABLET.ER (FP) PO PRN (17:59)
[2023-03-08] MEDS ORDERED: MELATONIN 5 MG TABLETS PO SCH (22:00)
[2023-03-08] MEDS: THIAMINE HCL 100 MG TABLET (FP) PO SCH (22:37)
[2023-03-08] MEDS: IBUPROFEN 600 MG TABLET (FP) PO PRN (22:38)
[2023-03-09] MEDS: chlordiazePOXIDE HCL 25 MG CAPSULE PO SCH ×4 (05:22→22:02)
[2023-03-09] MEDS: guaiFENesin 600 MG TABLET.ER (FP) PO PRN ×2 (05:22→10:53)
[2023-03-09] MEDS: ACETAMINOPHEN 325 MG TABLET (FP) PO PRN (05:42)
[2023-03-09] MEDS: BICTEGRAV/EMTRICIT/TENOFOV (BIKTARVY) 50-200-25 MG TABLET PO SCH (07:24)
[2023-03-09 09:47] LABS: CHLORIDE 105 mmol/L (98-107); POTASSIUM 3.2 mmol/L (3.5-5.1); SODIUM 139 mmol/L (136-145)
[2023-03-09 09:49] LABS: HEMOGLOBIN 12.6 GM/dL (11.7-16.9); MCH 31.8 pg (25.7-33.7); MCHC 33.3 g/dl (32.0-35.9); MEAN CELL VOLUME 95.5 fl (80-96); MEAN PLT VOLUME 8.5 fl (7.5-11.1); PLATELET COUNT 166 10^3/uL (134-434); RBC 3.97 M/mm3 (4.00-5.60); RDW 13.9 % (11.9-15.9); WHITE BLOOD COUNT 4.5 K/mm3 (4.0-10.0)
[2023-03-09 09:55] LABS: ANION GAP 9 mmol/L (4-13); CO2 25 mmol/L (21-32); SGPT/ALT 27 U/L (13-61)
[2023-03-09 09:56] LABS: ALBUMIN 3.1 g/dl (3.4-5.0); GLUCOSE,RANDOM 147 mg/dL (74-106)
[2023-03-09 09:57] LABS: BILIRUBIN,TOTAL 0.2 mg/dL (0.2-1); TOT PROT 6.5 g/dl (6.4-8.2)
[2023-03-09 09:58] LABS: ALK PHOS 77 U/L (45-117)
[2023-03-09 10:00] LABS: CALCIUM 8.7 mg/dL (8.5-10.1)
[2023-03-09 10:04] LABS: SGOT/AST 21 U/L (15-37)
[2023-03-09] MEDS: LISINOPRIL 20 MG TABLET PO SCH (10:48)
[2023-03-09] MEDS: PRENATAL VITAMINS W/ FOLIC ACID TABLET (FP) PO SCH (10:48)
[2023-03-09] MEDS ORDERED: guaiFENesin 200 MG/10 ML 10 ML UNIT-DOSE CUPS PO ONE (16:53)
[2023-03-09] MEDS: IBUPROFEN 600 MG TABLET (FP) PO PRN (21:36)
[2023-03-09] MEDS ORDERED: SUVOREXANT 15 MG TABLET PO PRN (22:00)
[2023-03-09] MEDS: THIAMINE HCL 100 MG TABLET (FP) PO SCH (22:01)
[2023-03-10] MEDS: chlordiazePOXIDE HCL 25 MG CAPSULE PO SCH ×3 (06:00→17:06)
[2023-03-10] MEDS: ACETAMINOPHEN 325 MG TABLET (FP) PO PRN (06:13)
[2023-03-10] MEDS: guaiFENesin 600 MG TABLET.ER (FP) PO PRN ×2 (06:13→10:02)
[2023-03-10] MEDS: BICTEGRAV/EMTRICIT/TENOFOV (BIKTARVY) 50-200-25 MG TABLET PO SCH (07:43)
[2023-03-10] MEDS: PRENATAL VITAMINS W/ FOLIC ACID TABLET (FP) PO SCH (10:00)
[2023-03-10] MEDS: LISINOPRIL 20 MG TABLET PO SCH (10:02)
[2023-03-10] MEDS: IBUPROFEN 600 MG TABLET (FP) PO PRN (10:02)
[2023-03-10] MEDS ORDERED: POTASSIUM CHLORIDE ORAL LIQUID 20 MEQ/15 ML PO ONE (13:30)
[2023-03-10 17:27] VITALS: BP 132/81; PULSE 104; RESP 17; TEMP 97.8
[2023-03-10] MEDS ORDERED: POTASSIUM CHLORIDE ORAL LIQUID 20 MEQ/15 ML PO SCH (22:00)
[2023-03-11] MEDS ORDERED: chlordiazePOXIDE HCL 10 MG CAPSULE PO PRN
[2023-03-11] MEDS ORDERED: chlordiazePOXIDE HCL 10 MG CAPSULE PO SCH (05:00)
[2023-03-12] MEDS ORDERED: chlordiazePOXIDE HCL 10 MG CAPSULE PO SCH (05:00)
[2023-03-13] MEDS ORDERED: chlordiazePOXIDE HCL 10 MG CAPSULE PO ONE (05:00)
== END 2023-03-10 17:56 | disposition left against medical advice (07) | DRG 770 ==
LOC: YASAS 11:29 → SUATTDRO 11:29 → Y6N 16:38
PROVIDERS: ADMIT Allergy & Immunology; ATTEND Surgery
PROC: HZ2ZZZZ Detoxification Services for Substance Abuse Treatment (ICD-10-PCS; principal; 2023-03-08)
DX: F10.230 Alcohol dependence with withdrawal, uncomplicated (principal); F14.20 Cocaine dependence, uncomplicated; F17.210 Nicotine dependence, cigarettes, uncomplicated; F31.9 Bipolar disorder, unspecified; F19.282 Other psychoactive substance dependence with psychoactive substance-induced sleep disorder; F19.24 Other psychoactive substance dependence with psychoactive substance-induced mood disorder; I10 Essential (primary) hypertension; E87.6 Hypokalemia; I11.9 Hypertensive heart disease without heart failure; M16.11 Unilateral primary osteoarthritis, right hip; Z86.19 Personal history of other infectious and parasitic diseases
CPT/HCPCS: 36415; 80053; 80307; 85027; 86593; 86780; 87635; 87811